=== PATIENT | female | born 1985 | race Caucasian/White ===

== ENCOUNTER 2017-07-22 14:09 | Emergency (ER) | payer MEDICAID, SELFPAY | END 2017-07-22 16:04 | disposition home or self-care (01) | PROVIDERS: Emergency Provider Emergency Medicine; Family Provider Family Medicine; Visit Provider Emergency Medicine | DX: S62.664A Nondisplaced fracture of distal phalanx of right ring finger, initial encounter for closed fracture (principal); W31.89XA Contact with other specified machinery, initial encounter; Y92.099 Unspecified place in other non-institutional residence as the place of occurrence of the external cause; S67.192A Crushing injury of right middle finger, initial encounter; Z23 Encounter for immunization; Z87.891 Personal history of nicotine dependence; Z88.6 Allergy status to analgesic agent | CPT/HCPCS: 73130; 90715; 99282 ==

== ENCOUNTER 2017-10-23 09:48 | Emergency (ER) | payer MEDICAID, SELFPAY ==
[2017-10-23 10:01] VITALS: BP 138/90; PULSE 100; RESP 18; TEMP 37; O2SAT 99; BMI 28.3
--- NOTE | 2017-10-23 10:13 | HMH.EDUTC ---
[facility] [place] Disposition Clinical Impression: Eustachian tube dysfunction Qualifiers: Laterality: bilateral Qualified Code(s): H69.83 - Other specified disorders of Eustachian tube, bilateral Sinusitis Qualifiers: Sinusitis location: maxillary Chronicity: acute Recurrence: non-recurrent Qualified Code(s): J01.00 - Acute maxillary sinusitis, unspecified Disposition: Home, Self-Care Condition on Discharge: Good Instructions: DI for Sinusitis Prescriptions: Fluticasone Propionate [Flonase Allergy Relief NS] 1 spray NS BID 10 Days #1 bot predniSONE [Prednisone 20mg Tab] 20 mg PO BID 5 Days #10 tab Azithromycin [Zithromax 250mg tab] 250 mg PO DIRECTED #6 tab Referrals: Chalo Harrington MD [Primary Care Provider] - Dashawn Wise MD [Staff Physician] - Time of Disposition: 10:31 Medical Decision Making - Medical Records Medical records reviewed: Yes: I reviewed the patient's medical records. - Demetrio Inquiry Pt receiving controlled substance: No Vital Signs: 10/23/17 10:01 Temperature 98.6 F Temperature Source Oral Pulse Rate [Right Radial] 100 H Respiratory Rate 18 Blood Pressure [Right Arm] 138/90 Blood Pressure Mean [Right Arm] 106 02 Sat by Pulse Oximetry 99 Oxygen Delivery Method Room Air - Lab Data Lab results reviewed: Yes: I reviewed the patient's lab results. Medical Decision Narrative: When discussing therapy (Sudafed) patient states that she has occasional heart palpitations and chest heaviness. She is not experiencing these symptoms currently, but they do scare her as she has a family history of early cardiac . Encouraged her to talk to Dr Harrington more about these symptoms to get further testing. [facility] [place] HPI - General Stated complaint: fever,sore throat Time Seen by Provider: 10/23/17 10:13 Mode of Arrival: Family Vehicle Source of Information: Patient Limitations: No Limitations Description of Symptoms (Recalled from Triage Doc. by RN): PT C/O SORE THROAT, EAR PAIN, FEVER. PT HAS BEEN ON ANTIBIOTICS FOR STREP AND KIDNEY INFECTION SINCE September. HEENT Symptoms (Recalled from RN notes): Yes (EAR PAIN, SORE THROAT, FEVER) Resp Symptoms (Recalled from RN notes): Yes (COUGH) Skin Symptoms (Recalled from RN notes): No MS Symptoms (Recalled from RN notes): No Functional Status (Recalled from RN notes): NA - History of Present Illness Provider Complaint: Patient states that she really hasn't felt well for a few weeks. She was on Keflex at the beginning of the month for a UTI and then was changed to PCN VK 11 days ago when her daughter was treated for strep throat. She still has ear pain, sore throat, and fever. Last night she felt like her throat was swelling closed and she had a temp of 101 and some difficulty swallowing. She didn't rest well. She still has some back pain and perhaps some dysuria as well. She feels like her ears are draining and it hurts to swallow. No vomiting or diarrhea. Onset (ago): week(s) (3) Location: mouth Relieving factors: none Exacerbating factors: none Associated symptoms: fever/chills, malaise Treatments prior to arrival: other (Keflex, PCN VK) - Related Data Previous Rx's Medication Instructions Recorded Azithromycin [Zithromax 250mg 250 mg PO DIRECTED #6 tab 10/23/17 tab] Fluticasone Propionate [Flonase 1 spray NS BID 10 Days #1 bot 10/23/17 Allergy Relief NS] predniSONE [Prednisone 20mg 20 mg PO BID 5 Days #10 tab 10/23/17 Tab] Allergies Allergy/AdvReac Type Severity Reaction Status Date / Time codeine [CODEINE] Allergy Unknown Verified 10/23/17 10:00 - Worker's Comp Is this a Worker's Comp case?: No [facility] History I have reviewed the patient's past medical history: Yes Medical History: Denies:: Cancer, Diabetes Mellitus Type 1, Diabetes Mellitus Type 2, MRSA Laterality Cases: Bilateral: Tonsillectomy Amputation: No - Social History Smoking Status: Current every day smoker Tobacco Type: cigarett
[2017-10-23 10:17] LABS: UTC Strep Screen (Rapid) Negative (Negative)
--- NOTE | 2017-10-23 10:22 | ED_ITS ---
[facility] [place] Clinical Impression: Eustachian tube dysfunction Qualifiers: Laterality: bilateral Qualified Code(s): H69.83 - Other specified disorders of Eustachian tube, bilateral Sinusitis Qualifiers: Sinusitis location: maxillary Chronicity: acute Recurrence: non-recurrent Qualified Code(s): J01.00 - Acute maxillary sinusitis, unspecified Disposition: Home, Self-Care Condition on Discharge: Good Instructions: DI for Sinusitis Prescriptions: Fluticasone Propionate [Flonase Allergy Relief NS] 1 spray NS BID 10 Days #1 bot predniSONE [Prednisone 20mg Tab] 20 mg PO BID 5 Days #10 tab Azithromycin [Zithromax 250mg tab] 250 mg PO DIRECTED #6 tab Referrals: Chalo Harrington MD [Primary Care Provider] - Dashawn Wise MD [Staff Physician] - Time of Disposition: 10:31 Medical Decision Making - Medical Records Medical records reviewed: Yes: I reviewed the patient's medical records. - Demetrio Inquiry Pt receiving controlled substance: No Vital Signs: 10/23/17 10:01 Temperature 98.6 F Temperature Source Oral Pulse Rate [Right Radial] 100 H Respiratory Rate 18 Blood Pressure [Right Arm] 138/90 Blood Pressure Mean [Right Arm] 106 02 Sat by Pulse Oximetry 99 Oxygen Delivery Method Room Air - Lab Data Lab results reviewed: Yes: I reviewed the patient's lab results. Medical Decision Narrative: When discussing therapy (Sudafed) patient states that she has occasional heart palpitations and chest heaviness. She is not experiencing these symptoms currently, but they do scare her as she has a family history of early cardiac . Encouraged her to talk to Dr Harrington more about these symptoms to get further testing. [facility] [place]PI - General Stated complaint: fever,sore throat Time Seen by Provider: 10/23/17 10:13 Mode of Arrival: Family Vehicle Source of Information: Patient Limitations: No Limitations Description of Symptoms (Recalled from Triage Doc. by RN): PT C/O SORE THROAT, EAR PAIN, FEVER. PT HAS BEEN ON ANTIBIOTICS FOR STREP AND KIDNEY INFECTION SINCE September. HEENT Symptoms (Recalled from RN notes): Yes (EAR PAIN, SORE THROAT, FEVER) Resp Symptoms (Recalled from RN notes): Yes (COUGH) Skin Symptoms (Recalled from RN notes): No MS Symptoms (Recalled from RN notes): No Functional Status (Recalled from RN notes): NA - History of Present Illness Provider Complaint: Patient states that she really hasn't felt well for a few weeks. She was on Keflex at the beginning of the month for a UTI and then was changed to PCN VK 11 days ago when her daughter was treated for strep throat. She still has ear pain, sore throat, and fever. Last night she felt like her throat was swelling closed and she had a temp of 101 and some difficulty swallowing. She didn't rest well. She still has some back pain and perhaps some dysuria as well. She feels like her ears are draining and it hurts to swallow. No vomiting or diarrhea. Onset (ago): week(s) (3) Location: mouth Relieving factors: none Exacerbating factors: none Associated symptoms: fever/chills, malaise Treatments prior to arrival: other (Keflex, PCN VK) - Related Data Previous Rx's Medication Instructions Recorded Azithromycin [Zithromax 250mg 250 mg PO DIRECTED #6 tab 10/23/17 tab] Fluticasone Propionate [Flonase 1 spray NS BID 10 Days #1 bot 10/23/17 Allergy Relief NS] predniSONE [Prednisone 20mg 20 mg PO BID 5 Days #10 tab 10/23/17
[2017-10-23 10:26] LABS: Apearance,Urine Clear (Clear); Blood, Urine 1+ (Negative); Color,Urine Yellow (Yellow); Glucose,Urine (UA) Negative (Negative); Ketones,Urine Negative (Negative); PH,Urine 5.5 (5.0-8.5); Protein,Urine Negative (Negative); Specific Gravity, Urine 1.015 (1.005-1.030)
[2017-10-23 10:27] LABS: Bilirubin,Urine Negative (Negative); UTC Leukocyte Esterase,Urine Negative (Negative); UTC Nitrate,Urine Negative (Negative); Urobilinogen,Urine 0.2 EU/dl (0.2)
[2017-10-23 10:36] VITALS: BP 130/86; PULSE 95; RESP 16; TEMP 36.9; O2SAT 100
== END 2017-10-23 10:37 | disposition home or self-care (01) ==
PROVIDERS: Emergency Provider Physician Assistant; Family Provider Family Medicine; PCP Family Medicine
DX: H69.83 Other specified disorders of Eustachian tube, bilateral (principal); J01.00 Acute maxillary sinusitis, unspecified; Z88.6 Allergy status to analgesic agent
CPT/HCPCS: 81003; 87880; 99202

== ENCOUNTER → 2018-01-10 08:56 | Outpatient (CLI) | payer MEDICAID, SELFPAY ==
--- NOTE | 2018-01-10 09:01 | US_ITS ---
US abdomen limited History:Epigastric pain and diarrhea Ordering Physician:Chalo Harrington MD Patient Age: 32 years Comparison:None Findings: Pancreas:Unremarkable. No obvious mass or abnormal fluid collection. No ductal dilatation Liver:No focal liver lesions demonstrated. Homogeneous echogenicity. No intrahepatic biliary ductal dilatation evident Right Kidney:Unremarkable. Normal size and echogenicity. No hydronephrosis Gallbladder:No gallstones, gallbladder wall thickening, pericholecystic fluid, or biliary dilatation. Impression:Negative gallbladder/right upper quadrant ultrasound
== END ==
PROVIDERS: Family Provider Family Medicine; PCP Family Medicine; Visit Provider Family Medicine
DX: R10.13 Epigastric pain (principal); K59.1 Functional diarrhea
CPT/HCPCS: 76705

== ENCOUNTER 2020-11-21 16:57 | Emergency (ER) | payer OTHER, SELFPAY ==
[2020-11-21 17:22] VITALS: BP 151/90; PULSE 91; RESP 16; TEMP 36.8; O2SAT 99; BMI 27.4
[2020-11-21 18:03] VITALS: BMI 28.5
--- NOTE | 2020-11-21 18:04 | HMH.EDUTC ---
[facility] [place] Clinical Impression: Right leg pain Disposition: Home, Self-Care Condition on Discharge: Good Instructions: DI for Deep Vein Thrombosis, DI for Leg Pain Additional Instructions: Return to the ER for any shortness of breath or chest pain tonight. Have the venous doppler done in the morning as discussed. Rest tonight and until you have the venous doppler done. Follow up with your primary care doctor tomorrow as scheduled, but make sure you have the doppler done in the morning. GO TO THE ER FOR ANY WORSENING SYMPTOMS OR CONCERNS Referrals: Chalo Harrington MD [Primary Care Provider] - Time of Disposition: 18:09 Medical Decision Making - Medical Records Medical records reviewed: No: I reviewed the patient's medical records. - Demetrio Inquiry Pt receiving controlled substance: No Vital Signs: 11/21/20 17:22 11/21/20 18:45 Temperature 98.3 F 98.3 F Temperature Source Oral Oral Pulse Rate 80 Pulse Rate [Right] 91 H Respiratory Rate 16 16 Blood Pressure 134/50 L Blood Pressure [Right Arm] 151/90 H Blood Pressure Mean [Right Arm] 110 Blood Pressure Source Automatic Cuff Blood Pressure Source [Right Arm] Automatic Cuff Blood Pressure Position Sitting Blood Pressure Position [Right Arm] Sitting 02 Sat by Pulse Oximetry 99 Oxygen Delivery Method Room Air Room Air Orders (Tests/Meds): ED MEDICATIONS Discontinued Medications Generic Name Dose Route Start Last Admin Trade Name Freq PRN Reason Stop Dose Admin Enoxaparin Sodium 80 mg 11/21/20 18:04 11/21/20 18:09 Enoxaparin 80mg/0.8ml Syringe SQ 11/21/20 18:05 80 mg ONCE ONE Administration Medical Decision Narrative: She started complaining of chest pain and mild shortness of breath. She requested to be transferred to the ER. So, she was transferred to room 6 in the ER. [facility] [place] - General Stated complaint: pain R leg Time Seen by Provider: 11/21/20 18:04 Mode of Arrival: Ambulatory Source of Information: Patient Limitations: No Limitations Description of Symptoms (Recalled from Triage Doc. by RN): PT COMPLAINS THAT SHE HAS VARICOSE VEINS ON THE INSIDE OF HER R LEG. PT DROVE FROM [place] TO HERE WEDNESDAY WITHOUT STOPPING. THEN LAID IN BED ALL DAY WEDNESDAY AND WEDNESDAY. YESTERDAY BEHIND PTS KNEE SHE SAID IT FELT LIKE THERE WAS A POP AND A REALLY WARM SENSATION. THE PAIN HAS BEEN ONGOING FOR FOUR DAYS. PT IS EXTREMELY ANXIOUS AND STATES SHE HAD A FRIEND FROM A BLOOD CLOT. HEENT Symptoms (Recalled from RN notes): No Resp Symptoms (Recalled from RN notes): No Skin Symptoms (Recalled from RN notes): No MS Symptoms (Recalled from RN notes): Yes (R LEG PAIN WITH VERICOSE VEINS) Functional Status (Recalled from RN notes): NA - History of Present Illness Provider Complaint: She states that she has right leg pain and swelling for the past 4 days. She has a history of varicose veins in that leg. She denies any personal or family history of blood clots. She denies any shortness of breath and chest pain. - Related Data Previous Rx's Medication Instructions Recorded fluconazole 150 mg tablet 150 mg PO Q3D 0 Days #2 tab 11/18/18 terconazole 0.8 % vaginal cream 1 appful VAGINAL QHS 3 Days #20 g 11/18/18 nitrofurantoin 100 mg PO BID 10 Days #20 cap 04/28/19 monohydrate/macrocrystals 100 mg capsule Allergies Allergy/AdvReac Type Severity Reaction Status Date / Time codeine [CODEINE] Allergy Unknown Verified 04/28/19 09:35 - Worker's Comp Is this a Worker's Comp case?: No [facility] History - Hepatitis A Screen Drug use history?: No High risk sexual behaviors?: No History of sexually transmitted infection?: No Currently employed?: No Childcare worker?: No Do you have indoor plumbing?: Yes Do you have electricity?: Yes Attestation statement:: This patient has been screened for Hepatitis A risk factors. I have reviewed the patient's past medical history: Yes Medical History: Denies:: Can
--- NOTE | 2020-11-21 18:34 | PC.NURSE ---
Dr. Green at bedside with patient having a discussion. PT has decided against workup and advises she just wants the lovenox shot and wants the doppler for the am. wrote order and notified resp of doppler.
--- NOTE | 2020-11-21 18:40 | HMH.EDGENADL ---
ED Disposition Clinical Impression: Right leg pain Disposition: Home, Self-Care Condition on Discharge: Good Instructions: DI for Deep Vein Thrombosis, DI for Leg Pain Additional Instructions: Return to the ER for any shortness of breath or chest pain tonight. Have the venous doppler done in the morning as discussed. Rest tonight and until you have the venous doppler done. Follow up with your primary care doctor tomorrow as scheduled, but make sure you have the doppler done in the morning. GO TO THE ER FOR ANY WORSENING SYMPTOMS OR CONCERNS Referrals: Chalo Harrington MD [Primary Care Provider] - - Critical Care Critical Care Time: No Attestation: On 11/21/20, the high probability of a clinically significant, sudden or life threatening deterioration of the following system(s) required my full and direct attention, intervention and personal management. The time I documented below is in addition to time spent performing reported procedures but includes the following listed in this critical care notation. Medical Decision Making - Medical Records Medical records reviewed: Yes: I reviewed the patient's medical records. - Demetrio Inquiry Pt receiving controlled substance: No Vital Signs: 11/21/20 17:22 Temperature 98.3 F Temperature Source Oral Pulse Rate [Right] 91 H Respiratory Rate 16 Blood Pressure [Right Arm] 151/90 H Blood Pressure Mean [Right Arm] 110 Blood Pressure Source [Right Arm] Automatic Cuff Blood Pressure Position [Right Arm] Sitting 02 Sat by Pulse Oximetry 99 Oxygen Delivery Method Room Air Orders (Tests/Meds): ED MEDICATIONS Discontinued Medications Generic Name Dose Route Start Last Admin Trade Name Freq PRN Reason Stop Dose Admin Enoxaparin Sodium 80 mg 11/21/20 18:04 11/21/20 18:09 Enoxaparin 80mg/0.8ml Syringe SQ 11/21/20 18:05 80 mg ONCE ONE Administration Medical Decision Narrative: 35-year-old female presents with right lower extremity pain. Exam is most consistent with a chronic exertional pain. She has varicose veins are worsening in the right lower extremity as well after ambulating. Bedside ultrasound with four-point compression of the iliac vein and popliteal vein show adequate compression throughout. She does not have 1+ edema in the lower extremity and otherwise is PERC negative for PTE. As it is after hours for radiology ultrasound at this time, plan to give 1 dose of Lovenox 1 mg/kg and schedule outpatient ultrasound Doppler for the morning. She was agreeable with this plan and given strict return precautions for returning should there be any issues General Adult HPI - General Stated complaint: pain R leg Time Seen by Provider: 11/21/20 18:04 Mode of Arrival: Ambulatory Source of Information: Patient Limitations: No Limitations Description of Symptoms (Recalled from ER Triage Doc. by RN): PT COMPLAINS THAT SHE HAS VARICOSE VEINS ON THE INSIDE OF HER R LEG. PT DROVE FROM [place] TO HERE WEDNESDAY WITHOUT STOPPING. THEN LAID IN BED ALL DAY WEDNESDAY AND WEDNESDAY. YESTERDAY BEHIND PTS KNEE SHE SAID IT FELT LIKE THERE WAS A POP AND A REALLY WARM SENSATION. THE PAIN HAS BEEN ONGOING FOR FOUR DAYS. PT IS EXTREMELY ANXIOUS AND STATES SHE HAD A FRIEND FROM A BLOOD CLOT. - History of Present Illness HPI narrative: 35-year-old female presents with tenderness and pain to her right lower leg. She recently traveled to [place] in a car and was on her feet a lot while she was down there. She has anxiety because of her aunt from a blood clot. She has no chest pain shortness of air abdominal pain nausea vomiting. No prior blood clots. No hemoptysis cough fever chills. She does have chronic varicose veins in that right lower extremity. Onset (ago): day(s) (1) Radiation: non-radiation Severity: mild - Related Data Previous Rx's Medication Instructions Recorded fluconazole 150 mg tablet 150 mg PO Q3D 0 Days #2 tab 11/18/[address] [facility]
[2020-11-21 18:45] VITALS: BP 134/50; PULSE 80; RESP 16; TEMP 36.8; O2SAT 98
== END 2020-11-21 18:45 | disposition home or self-care (01) ==
LOC: UTC 18:08 → ER 18:19
PROVIDERS: Emergency Provider Nurse Practitioner Family; PCP Family Medicine
DX: I83.811 Varicose veins of right lower extremity with pain (principal); F17.210 Nicotine dependence, cigarettes, uncomplicated
CPT/HCPCS: 96372; 99281

== ENCOUNTER → 2020-11-22 08:53 | Outpatient (CLI) | payer OTHER, SELFPAY ==
--- NOTE | 2020-11-22 08:59 | CA_ITS ---
APPROVED REPORT Right Lower Extremity Venous Study for DVT. Cable Inspector: BRENDA PhelpsT Indications Lower Extremity Pain: Right Lower Extremity Edema: Right Varicose Veins PAIN AND BURNING BEHIND RT KNEE, PAIN MEDIAL RLE,PT RODE IN CAR FROM [place] RECENTLY Medications PT HAD SHOT OF LOVENOX LAST NIGHT IN ER Vein Imaging CFV (R): compressive, spontaneous, phasic, augmentation FEM (R): compressive, spontaneous, phasic, augmentation POP (R): compressive, spontaneous, phasic, augmentation PTV (R): Compressible GSV (R): Compressible Peroneals (R):Compressible GAS (R): Compressible Findings Study suggests no evidence of DVT of the right lower extremity. Study suggests no evidence of SVT of the right lower extremity. Conclusion Study suggests no evidence of DVT of the right lower extremity. Study suggests no evidence of SVT of the right lower extremity. Critical Notification Date: 11/22/2020 Time: 09:38 Physician Name: Dr Harrington office Electronically signed by : Ethan Betancourt MD 11/22/2020 15:47:52
== END ==
PROVIDERS: PCP Family Medicine; Visit Provider Nurse Practitioner Family
DX: M79.604 Pain in right leg (principal)
CPT/HCPCS: 93971

== ENCOUNTER → 2021-01-16 10:49 | Outpatient (CLI) | payer OTHER, SELFPAY ==
--- NOTE | 2021-01-16 11:00 | XR_ITS ---
PROCEDURE: XR CERVICAL SPINE MIN 6V CLINICAL INDICATION: CERVICAL RADICULOPATHY COMPARISON: No exams were available for comparison FINDINGS: Normal alignment. No fracture or dislocation. No lytic or blastic change. There is straightening of the cervical lordosis which could be due to patient positioning or muscle spasm. There is mild cervical curvature convex right. Degenerative disc disease C3-C4. Foraminal narrowing on the right at C3-C4 and C4-C5. IMPRESSION: Loss of normal cervical lordosis Mild degenerative disc disease C3-C4 with right-sided foraminal narrowing at C3-C4 and C4-C5 Dictated by: Ethan Betancourt MD 01/16/2021 14:27 Ethan Betancourt MD in [place] 01/16/2021 14:27
== END ==
PROVIDERS: PCP Family Medicine; Visit Provider Family Medicine
DX: M54.12 Radiculopathy, cervical region (principal)
CPT/HCPCS: 72052

== ENCOUNTER → 2021-03-06 10:47 | Outpatient (CLI) | payer OTHER, SELFPAY ==
--- NOTE | 2021-03-06 10:50 | MR_ITS ---
PROCEDURE: MR CERVICAL SPINE WO CON CLINICAL INDICATION: DEGENERATION OF CERVICAL INTERVERTEBRAL DISC Neck pain and left arm numbness COMPARISON: No exams were available for comparison TECHNIQUE: Standard multiplanar multiecho sequences are performed without contrast. 3-D MIP and myelographic images are also rendered and reviewed FINDINGS: Normal alignment. Unremarkable craniocervical junction. Spinal cord has an unremarkable appearance. C2-C3: Unremarkable. C3-C4: Mild right-sided foraminal narrowing from uncovertebral hypertrophy C4-C5: Unremarkable. C5-C6: Mild degenerative disc disease with minimal bulging disc. There is narrowing of the canal at 11 mm. No cord impingement. C6-C7: Minimal bulging disc without impingement. Mild left foraminal narrowing from uncovertebral hypertrophy. Narrowing of the canal at 11 mm. C7-T1: Unremarkable. IMPRESSION: 1. Mild degenerative disc disease with minimal bulging disc at C5-C6 and C6-C7 with narrowing of the canal at these levels but without cord impingement. 2. Mild right foraminal narrowing at C3-C4 and mild left foraminal narrowing at C6-C7 3. No extruded herniated disc Dictated by: Ethan Betancourt MD 03/07/2021 08:41 Ethan Betancourt MD in [place] 03/07/2021 08:41
== END ==
PROVIDERS: PCP Family Medicine; Visit Provider Anesthesiology
DX: M50.30 Other cervical disc degeneration, unspecified cervical region (principal)
CPT/HCPCS: 72141; 76376

== ENCOUNTER 2021-11-09 19:59 | Emergency (ER) | payer OTHER, SELFPAY ==
[2021-11-09 20:15] VITALS: BP 131/86; PULSE 87; RESP 19; TEMP 37; O2SAT 99; BMI 28.3
--- NOTE | 2021-11-09 20:34 | HMH.EDUTC ---
[facility] [place] Impression: COVID-19 virus test result unknown Disposition: Home, Self-Care Condition on Discharge: Good Instructions: COVID-19: Testing and Tracing Referrals: Chalo Harrington MD [Primary Care Provider] - Time of Disposition: 20:35 Medical Decision Making - Demetrio Inquiry Pt receiving controlled substance: No Orders (Tests/Meds): ORDERS Category Date Time Status Covid-19 Nasal PCR ([facility]) Routine Lab 11/09/21 20:20 [place] [facility] [place] - General Chief complaint: Urgent [facility] Stated complaint: covid test Time Seen by Provider: 11/09/21 20:34 Mode of Arrival: Ambulatory Source of Information: Patient Limitations: No Limitations - History of Present Illness Provider Complaint: 36 yr old female presents for covid test, pt states she needs covid test prior to surgery in am. no symptoms - Related Data Previous Rx's Medication Instructions Recorded fluconazole 150 mg tablet 150 mg PO Q3D 0 Days #2 tab 11/18/18 terconazole 0.8 % vaginal cream 1 appful VAGINAL QHS 3 Days #20 g 11/18/18 nitrofurantoin 100 mg PO BID 10 Days #20 cap 04/28/19 monohydrate/macrocrystals 100 mg capsule Allergies Allergy/AdvReac Type Severity Reaction Status Date / Time codeine [CODEINE] Allergy Unknown Verified 04/28/19 09:35 [facility] History - Hepatitis A Screen Attestation statement:: This patient has been screened for Hepatitis A risk factors. I have reviewed the patient's past medical history: Yes Medical History: Denies:: Cancer, Diabetes Mellitus Type 1, Diabetes Mellitus Type 2, MRSA Laterality Cases: Bilateral: Tonsillectomy Amputation: No - Social History Smoking Status: Current every day smoker Tobacco Type: cigarettes # Packs/Day (cigarettes): 1 Alcohol Intake: current Alcohol Intake Frequency:: holidays/special occasions only Substance Use Type: denies use Occupational Status: other ROS Obtained: Yes Systems reviewed as appropriate & no additional complaints - Constitutional Constitutional: Reports system reviewed and no additional complaints, except as docu, Denies fever(s) - Eyes Eyes: Reports system reviewed and no additional complaints, except as docu, Denies dry eyes - ENT Ears, Nose, Mouth, and Throat: Reports system reviewed and no additional complaints, except as docu, Denies bleeding gums - Cardiovascular Cardiovascular: Reports system reviewed and no additional complaints, except as docu, Denies chest pain - Respiratory Respiratory: Reports system reviewed and no additional complaints, except as docu, Denies change in phlegm color - Gastrointestinal Gastrointestingal: Reports: system reviewed and no additional complaints, except as docu. Denies: abdominal pain - Musculoskeletal Musculoskeletal: Reports system reviewed and no additional complaints, except as docu, Denies joint pain - Integumentary/Breasts Skin/Breast: Reports system reviewed and no additional complaints, except as docu, Denies rash - Neurologic Neurologic: Reports system reviewed and no additional complaints, except as docu, Denies dizziness - Endocrine Endocrine: Reports system reviewed and no additional complaints, except as docu, Denies fatigue - Hematologic/Lymphatic Henatologic/Lymphatic: Reports system reviewed and no additional complaints, except as docu, Denies lymphadenopathy - Allergic/Immunologic Allergic/Immunologic: Reports system reviewed and no additional complaints, except as docu, Denies itchy eyes Physical Exam - General General appearance: alert, in no apparent distress - Head Head exam: atraumatic, normocephalic, normal inspection - Eye Eye exam: Present: normal appearance, PERRL - ENT ENT exam: Present: normal exam, normal oropharynx, mucous membranes moist, TM's normal bilaterally, normal external ear exam - Neck Neck exam: Present: normal inspection, full ROM, trachea midline. Absent: meningismus, lymphadenopathy - Chest C
[2021-11-09 20:35] VITALS: BP 131/86; PULSE 87; RESP 19; TEMP 37; O2SAT 99
== END 2021-11-09 20:36 | disposition home or self-care (01) ==
PROVIDERS: Emergency Provider Nurse Practitioner Family; PCP Family Medicine
DX: Z03.89 Encounter for observation for other suspected diseases and conditions ruled out (principal); Z20.822 Contact with and (suspected) exposure to COVID-19; F17.210 Nicotine dependence, cigarettes, uncomplicated; Z79.51 Long term (current) use of inhaled steroids; Z88.5 Allergy status to narcotic agent
CPT/HCPCS: 99212; C9803; G0463; U0003; U0005

== ENCOUNTER 2022-03-05 21:12 | Emergency (ER) | payer OTHER, SELFPAY ==
[2022-03-05 21:48] VITALS: BP 117/80; PULSE 81; RESP 18; TEMP 36.5; O2SAT 98; BMI 26.6
--- NOTE | 2022-03-05 22:46 | HMH.EDSKAF ---
ED Disposition Clinical Impression: Contact dermatitis Qualifiers: Contact dermatitis type: irritant Contact dermatitis trigger: non-food plants Qualified Code(s): L24.7 - Irritant contact dermatitis due to plants, except food Disposition: Home, Self-Care Condition on Discharge: Good Instructions: Poison Izabel, Poison [place], Poison [place] Additional Instructions: use meds as directed and see pcp for follow up Prescriptions: predniSONE [Prednisone 20mg Tab] 20 mg PO BID #10 tab Transmission Status: Pending to [facility] Referrals: Chalo Harrington MD [Primary Care Provider] - - Critical Care Critical Care Time: No Attestation: On 03/05/22, the high probability of a clinically significant, sudden or life threatening deterioration of the following system(s) required my full and direct attention, intervention and personal management. The time I documented below is in addition to time spent performing reported procedures but includes the following listed in this critical care notation. Medical Decision Making - Medical Records Medical records reviewed: Yes: I reviewed the patient's medical records. - Demetrio Inquiry Pt receiving controlled substance: No Vital Signs: 03/05/22 21:48 Temperature 97.7 F Temperature Source Oral Pulse Rate [Right Brachial] 81 Respiratory Rate 18 Blood Pressure [Right Arm] 117/80 Blood Pressure Mean [Right Arm] 92 Blood Pressure Source [Right Arm] Automatic Cuff Blood Pressure Position [Right Arm] Sitting 02 Sat by Pulse Oximetry 98 Oxygen Delivery Method Room Air - Lab Data Lab results reviewed: Yes: I reviewed the patient's lab results. Medical Decision Narrative: prob contact dermatitis - poison izabel Skin/Abscess/FB HPI - General Chief complaint: Skin/Abscess/Foreign Body Stated complaint: rash Time Seen by Provider: 03/05/22 22:46 Mode of Arrival: Family Vehicle Source of Information: Patient, Medical Record Limitations: No Limitations Description of Symptoms (Recalled from ER Triage Doc. by RN): PATIENT PRESENTS WITH SKIN RASH THAT SHE THINKS IS POISON IZABEL. WOULD LIKE A STEROID SHOT FOR TREATMENT. - History of Present Illness HPI narrative: has been camping and possible contact dermatitis with rash and itching MD complaint: rash Onset (ago): hour(s) Tetanus up to date: yes Location: generalized Severity: moderate Quality: pruritic Consistency: intermittent Associated symptoms: denies other symptoms Treatments prior to arrival: Benadryl - Related Data Home Medications Medication Instructions Recorded Confirmed bevacizumab 25 mg/mL intravenous INTRAVITRE 02/06/22 02/06/22 solution tramadol 50 mg tablet 50 mg PO TID PRN 02/06/22 02/06/22 Previous Rx's Medication Instructions Recorded predniSONE [Prednisone 20mg 20 mg PO BID #10 tab 03/05/22 Tab] Allergies Allergy/AdvReac Type Severity Reaction Status Date / Time codeine [CODEINE] Allergy Unknown Verified 02/06/22 11:13 [facility] History - Hepatitis A Screen Attestation statement:: This patient has been screened for Hepatitis A risk factors. I have reviewed the patient's past medical history: Yes Medical History: Denies:: Cancer, Diabetes Mellitus Type 1, Diabetes Mellitus Type 2, MRSA Laterality Cases: Bilateral: Tonsillectomy Amputation: No - Social History Smoking Status: Current every day smoker Tobacco Type: cigarettes # Packs/Day (cigarettes): 1 Alcohol Intake: current Alcohol Intake Frequency:: holidays/special occasions only Substance Use Type: denies use Occupational Status: other ROS Obtained: Yes All systems reviewed & no additional complaints - Constitutional Constitutional: Denies fever(s) - Eyes Eyes: Denies change in vision - ENT Ears, Nose, Mouth, and Throat: Denies sore throat - Cardiovascular Cardiovascular: Denies chest pain - Respiratory Respiratory: Denies shortness of breath - Gastrointestinal Gastrointesting
[2022-03-05 23:04] VITALS: BP 115/74; PULSE 74; RESP 18; TEMP 36.5; O2SAT 98
== END 2022-03-05 23:14 | disposition home or self-care (01) ==
PROVIDERS: Emergency Provider Emergency Medicine; PCP Family Medicine
DX: L24.7 Irritant contact dermatitis due to plants, except food (principal); Z79.899 Other long term (current) drug therapy; Z88.6 Allergy status to analgesic agent; Z72.0 Tobacco use
CPT/HCPCS: 96372; 99283

== ENCOUNTER 2022-03-08 13:23 | Emergency (ER) | payer OTHER, SELFPAY ==
[2022-03-08 14:51] VITALS: BP 145/86; PULSE 97; RESP 16; TEMP 36.6; O2SAT 98; BMI 29.5
--- NOTE | 2022-03-08 15:08 | HMH.EDUTC ---
[facility] Disposition Clinical Impression: Skin problem Disposition: Home, Self-Care Condition on Discharge: Good Instructions: DI for Impetigo, Impetigo Additional Instructions: Keep lesions clean and dry and do not scratch Wash your hands well before and after applying topical medication Start oral medication Return if needed Prescriptions: Doxycycline Monohydrate [Doxycycline Nome 100mg Tab] 100 mg PO BID 7 Days #14 tab Transmission Status: Pending to [facility] Mupirocin Calcium [Mupirocin 2% Cream 15gm] 1 applicatio TP TID 10 Days #15 gm Transmission Status: Pending to [facility] Referrals: Chalo Harrington MD [Primary Care Provider] - As needed Time of Disposition: 15:32 Medical Decision Making - Demetrio Inquiry Pt receiving controlled substance: No Demetrio was queried for this patient: No Vital Signs: 03/08/22 14:51 Temperature 97.9 F Temperature Source Oral Pulse Rate [Left] 97 H Respiratory Rate 16 Blood Pressure [Right Arm] 145/86 H Blood Pressure Mean [Right Arm] 105 02 Sat by Pulse Oximetry 98 Medical Decision Narrative: Daughter recently had similar rash that was cultured and showed Staphylococcus aureus [facility] HPI - General Stated complaint: skin rash Time Seen by Provider: 03/08/22 15:08 Mode of Arrival: Ambulatory Source of Information: Patient Limitations: No Limitations Description of Symptoms (Recalled from Triage Doc. by RN): patient comes in with complaints of skin rash that began wednesday HEENT Symptoms (Recalled from RN notes): No Resp Symptoms (Recalled from RN notes): No Skin Symptoms (Recalled from RN notes): Yes MS Symptoms (Recalled from RN notes): No Functional Status (Recalled from RN notes): n/a - History of Present Illness Provider Complaint: Patient states that she started out with poison dez rash and was seen in the ED a couple days ago and states she has been on Prednisone and poison dez is better however her daughter had impetigo and now she thinks she may have it too States that she has areas starting under her arms on her leg and felt like there may be one in her ear - Related Data Home Medications Medication Instructions Recorded Confirmed bevacizumab 25 mg/mL intravenous INTRAVITRE 02/06/22 02/06/22 solution tramadol 50 mg tablet 50 mg PO TID PRN 02/06/22 03/08/22 predniSONE [Prednisone 20mg 20 mg PO BID 03/08/22 03/08/22 Tab] Previous Rx's Medication Instructions Recorded Doxycycline Monohydrate 100 mg PO BID 7 Days #14 tab 03/08/22 [Doxycycline Nome 100mg Tab] Mupirocin Calcium [Mupirocin 2% 1 applicatio TP TID 10 Days #15 gm 03/08/22 Cream 15gm] Allergies Allergy/AdvReac Type Severity Reaction Status Date / Time codeine [CODEINE] Allergy Unknown Verified 03/08/22 14:54 - Worker's Comp Is this a Worker's Comp case?: No [facility] History - Hepatitis A Screen Attestation statement:: This patient has been screened for Hepatitis A risk factors. I have reviewed the patient's past medical history: Yes Medical History: Denies:: Cancer, Diabetes Mellitus Type 1, Diabetes Mellitus Type 2, MRSA Laterality Cases: Bilateral: Tonsillectomy Amputation: No - Social History Smoking Status: Current every day smoker Tobacco Type: cigarettes # Packs/Day (cigarettes): 1 Alcohol Intake: current Alcohol Intake Frequency:: holidays/special occasions only Substance Use Type: denies use Occupational Status: other ROS Obtained: Yes All systems reviewed & no additional complaints, Yes Systems reviewed as appropriate & no additional complaints - Constitutional Constitutional: Reports system reviewed and no additional complaints, except as docu - ENT Ears, Nose, Mouth, and Throat: Reports system reviewed and no additional complaints, except as docu - Cardiovascular Cardiovascular: Reports system reviewed and no additional complaints, except as docu - Respiratory Respiratory: Reports system reviewed a
[2022-03-08 15:36] VITALS: BP 145/86; PULSE 97; RESP 16; TEMP 36.6
== END 2022-03-08 15:42 | disposition home or self-care (01) ==
PROVIDERS: Emergency Provider Nurse Practitioner; PCP Family Medicine
DX: R21 Rash and other nonspecific skin eruption (principal)
CPT/HCPCS: 99212; G0463

== ENCOUNTER → 2022-04-14 10:47 | Outpatient (CLI) | payer OTHER, SELFPAY ==
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
== END ==
PROVIDERS: PCP Family Medicine; Visit Provider Physician Assistant Medical
DX: M54.12 Radiculopathy, cervical region (principal); M54.50 Low back pain, unspecified
CPT/HCPCS: 72084

== ENCOUNTER → 2022-09-10 15:29 | Outpatient (CLI) | payer OTHER, SELFPAY ==
[2022-09-10 17:55] LABS: Basophils # 0.1 K/mm3 (0-0.2); Basophils % 0.6 % (0.1-2.0); Eosinophils # 0.2 K/mm3 (0.0-0.4); Eosinophils % 1.4 % (0.1-12.0); Hemoglobin 12.7 g/dL (12.2-16.2); Lymphocytes # 3.3 K/mm3 (0.7-4.5); Lymphocytes % 25.4 % (10-50); Mean Corpuscular HGB Conc 31.7 g/dL (31.8-35.4); Mean Corpuscular Hemoglobin 29.6 pg (27.0-31.2); Mean Corpuscular Volume 93.4 fl (81-99); Mean Platelet Volume 8.1 fl (7.4-10.4); Monocytes # 0.5 K/mm3 (0.1-1.0); Neutrophils % 68.6 % (37.0-80.0); Platelet Count 411 K/mm3 (142-424); Red Blood Count 4.29 M/mm3 (4.20-5.40); Red Cell Distribution Width 12.9 % (11.5-17.5); White Blood Count 13.1 K/mm3 (4.8-10.8)
[2022-09-10 19:56] LABS: Alanine Aminotransferase 17 U/L (12-78); Albumin Level 4.7 g/dl (3.5-5.0); Alkaline Phosphatase 59 U/L (38-126); Anion Gap 13.9 mEq/L (5-15); Aspartate Amino Transferase 24 U/L (14-36); Bilirubin,Total 0.6 mg/dl (0.2-1.3); Blood Urea Nitrogen 16 mg/dl (7-17); Calcium 8.9 mg/dl (8.4-10.2); Carbon Dioxide 27 mmol/L (22.0-30.0); Chloride 100 mmol/L (98-107); Chol/HDL Ratio 4.2 (1-3.5); Cholesterol 158 mg/dl (140-200); Estimated Glomerular Filt Rate 81 ml/min (>60); GFR (African American) 98 ML/MIN (>60); Globulin 2.4 g/dL (1.3-3.2); Glucose 97 mg/dl (74-100); HDL Cholesterol 38 mg/dl (40-60); Magnesium 1.9 mg/dl (1.6-2.3); Potassium 3.9 mmoL/L (3.5-5.1); Sodium 137 mmol/L (136-145); Total Protein,Serum 7.1 g/dl (6.3-8.2); Triglycerides 232 mg/dl (30-150); VLDL Cholesterol 46 mg/dL (0-40)
[2022-09-10 20:08] LABS: C-Reactive Protein 0.7 mg/L (0-4); Direct LDL Cholesterol 94.97 mg/dL (100-129)
[2022-09-10 20:13] LABS: Free T4 (Free Thyroxine) 0.87 ng/dl (0.78-2.19)
[2022-09-10 20:27] LABS: Troponin I < 0.01 ng/ml (0.00-0.034)
[2022-09-10 20:30] LABS: Thyroid Stimulating Hormone 2.76 uIU/mL (0.465-4.68)
== END ==
PROVIDERS: PCP Family Medicine; Visit Provider Nurse Practitioner Family
DX: R07.9 Chest pain, unspecified (principal); R03.0 Elevated blood-pressure reading, without diagnosis of hypertension; I83.811 Varicose veins of right lower extremity with pain; Z82.49 Family history of ischemic heart disease and other diseases of the circulatory system
CPT/HCPCS: 36415; 80053; 80061; 83735; 84439; 84443; 84484; 85025; 86140

== ENCOUNTER → 2022-10-22 15:25 | Outpatient (CLI) | payer OTHER, SELFPAY ==
--- NOTE | 2022-10-22 15:25 | CA_ITS ---
APPROVED REPORT EXAM: Comprehensive 2D, Doppler, and color-flow Echocardiogram Vault Clerk: Cheli Fenton RT(R) Ht: 5 ft 3 in Wt: 175lbs BSA: 1.83 BP: 136/44 mmHg Indications: palpitations, CP, smoker, fatigue, SOB, HTN, CAD 2D Dimensions Aortic Root 2.01 cm F: 2.7 - 3.3 M-Mode Dimensions RVDd 2.22 cm (0.9-2.6) LA Diam 3.07 cm (1.9-4.0) LVDd 4.47 cm (3.5-5.7) Ao Diam 3.15 cm (2.0-3.7) LVDs 3.36 cm (3.5-5.7) IVSd 0.97 cm (0.6-1.1) PWd 0.86 cm (0.6-1.1) EF (Teich) 49.30% FS 24.80% EDV (Teich) 91.00 mL ESV (Teich) 46.10 mL LV Diastology E Decel Time 167.00 (160-240 msec) E/A Ratio 0.9 MED E' 14.00 (< 7 cm/sec) E'/MED E' Ratio 5.58 (>14) LAT E' 15.50 (<10 cm/sec) E/LAT E' Ratio 5.04 (>14) Mitral Valve MV E Max Mason. 78.00 (40-130 cm/s) MV A Velocity 89.00 (40-130 cm/s) E/A Ratio 0.87 MV Decel. Time 167.00 (160-240 ms) MV PHT 49.00 ms Left Ventricle Left atrium is normal size left ventricle is normal size, estimated ejection fraction 55% with no regional wall motion abnormality, diastolic parameters are within normal range. Right Ventricle Right atrium and right ventricular normal size and contractility. Aortic Valve Aortic valve is grossly normal there is no aortic stenosis aortic insufficiency. Mitral Valve Mitral valve is grossly normal, there is trace mitral regurgitation. Tricuspid Valve Tricuspid grossly normal, there is trace tricuspid regurgitation, tricuspid regurgitation jet velocity is inadequate for calculation of the right ventricular systolic pressure. Pulmonic Valve Pulmonic valve is poorly visualized. Great Vessels Aortic root is normal size. Inferior vena cava normal size with normal inspiratory collapse. Pericardium No significant pericardial effusion noted. Conclusion 1. Normal left ventricular size preserved left ventricular systolic function, estimated ejection fraction 55% with no regional wall motion abnormality, diastolic parameters are within normal range. 2. Trace mitral and tricuspid regurgitation. 3. No significant pericardial effusion noted. 4. Inferior vena cava is normal size with normal inspiratory collapse. Electronically signed by : Macario Henley MD 10/22/2022 17:05:08
== END ==
PROVIDERS: PCP Nurse Practitioner Family; Visit Provider Nurse Practitioner
DX: R06.00 Dyspnea, unspecified (principal); R07.89 Other chest pain; R00.2 Palpitations; I10 Essential (primary) hypertension; Z72.0 Tobacco use
CPT/HCPCS: 93306

== ENCOUNTER → 2022-10-29 16:36 | Outpatient (CLI) | payer OTHER, SELFPAY ==
[2022-10-29 17:04] LABS: Basophils % 0.6 % (0.1-2.0); Eosinophils # 0.2 K/mm3 (0.0-0.4); Eosinophils % 2.4 % (0.1-12.0); Hematocrit 39.3 % (37.0-47.0); Hemoglobin 12.3 g/dL (12.2-16.2); Lymphocytes # 2.3 K/mm3 (0.7-4.5); Lymphocytes % 32.6 % (10-50); Mean Corpuscular HGB Conc 31.3 g/dL (31.8-35.4); Mean Corpuscular Hemoglobin 29.7 pg (27.0-31.2); Mean Corpuscular Volume 94.8 fl (81-99); Mean Platelet Volume 7.7 fl (7.4-10.4); Monocytes # 0.3 K/mm3 (0.1-1.0); Monocytes % 4.7 % (1.7-9.3); Neutrophils # 4.2 K/mm3 (1.8-7.8); Neutrophils % 59.7 % (37.0-80.0); Platelet Count 319 K/mm3 (142-424); Red Blood Count 4.14 M/mm3 (4.20-5.40); Red Cell Distribution Width 13.3 % (11.5-17.5)
[2022-10-29 17:31] LABS: Chloride 102 mmol/L (98-107); Sodium 140 mmol/L (136-145)
[2022-10-29 17:32] LABS: Potassium 4.7 mmoL/L (3.5-5.1)
[2022-10-29 17:34] LABS: Blood Urea Nitrogen 16 mg/dl (7-17); Estimated Glomerular Filt Rate 94 ml/min (>60); GFR (African American) 114 ML/MIN (>60)
[2022-10-29 17:35] LABS: Anion Gap 12.7 mEq/L (5-15); Calcium 8.8 mg/dl (8.4-10.2); Carbon Dioxide 30 mmol/L (22.0-30.0); Glucose 127 mg/dl (74-100)
== END ==
PROVIDERS: PCP Family Medicine; Visit Provider Surgery
DX: Z01.812 Encounter for preprocedural laboratory examination (principal)
CPT/HCPCS: 36415; 80048; 85025

== ENCOUNTER 2022-12-19 11:26 | Emergency (ER) | payer OTHER, SELFPAY ==
[2022-12-19 11:26] VITALS: BP 137/78; PULSE 90; RESP 18; TEMP 37.1; O2SAT 100; BMI 30.9
--- NOTE | 2022-12-19 12:18 | EXP.UTC ---
Discharge Plan Disposition Patient Disposition: Home, Self-Care Condition: Good Prescriptions Prescriptions: New prednisone [prednisone] 20 mg tablet 20 mg PO BID Qty: 10 0RF No Action tramadol 50 mg tablet 50 mg PO TID PRN (Reason: pain) losartan 100 mg tablet 100 mg PO DAILY Referrals Follow up/Referrals: Chalo Harrington MD [Primary Care Provider] - See instructions Clinical Impressions Clinical Impression: Allergy to poison lisa Instructions Patient Instructions: DI for Poison Lisa Allergy [facility]charge [facility] [facility] [place] General Stated complaint: Poison lisa rash Mode of Arrival: Ambulatory Source of Information: Patient Limitations: No Limitations Time Seen by Provider: 12/19/22 12:18 Description of Symptoms (Recalled from Triage Doc. by RN): poision lisa all over and spreading HEENT Symptoms (Recalled from RN notes): No Resp Symptoms (Recalled from RN notes): No Skin Symptoms (Recalled from RN notes): Yes MS Symptoms (Recalled from RN notes): No Functional Status (Recalled from RN notes): n/a History of Present Illness Provider Complaint: 37 yr old female presents for poison lisa on legs, ear and groin that has spread Related Data Home Medications Medication Instructions Recorded Confirmed tramadol 50 mg tablet 50 mg PO TID PRN pain 02/06/22 12/19/22 losartan 100 mg tablet 100 mg PO DAILY Hypertension 12/19/22 12/19/22 Previous Rx's Medication Instructions Recorded prednisone 20 mg tablet 20 mg PO BID #10 tabs 12/19/22 Allergies Allergy/AdvReac Type Severity Reaction Status Date / Time codeine [CODEINE] Allergy Unknown Verified 12/19/22 11:56 Worker's Comp Is this a Worker's Comp case?: No [facility] Disclaimer: The information contained in this section may have been updated after the patient was seen, as this information can be updated by other users. 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) Smoking Status: Current every day smoker tobacco type: cigarettes packs per day: 1 alcohol intake: current substance use type: denies use current occupational status: other Travel in the last 8 weeks: None ROS Obtained: Yes All systems reviewed & no additional complaints except as documented Constitutional Constitutional: Reports system reviewed and no additional complaints, except as documented Eyes Eyes: Reports system reviewed and no additional complaints, except as documented ENT Ears, Nose, Mouth, and Throat: Reports system reviewed and no additional complaints, except as documented and Reports as per HPI Cardiovascular Cardiovascular: Reports system reviewed and no additional complaints, except as documented Respiratory Respiratory: Reports system reviewed and no additional complaints, except as documented Gastrointestinal Gastrointestingal: Reports system reviewed and no additional complaints, except as documented Musculoskeletal Musculoskeletal: Reports system reviewed and no additional complaints, except as documented Integumentary/Breasts Skin/Breast: Reports system reviewed and no additional complaints, except as documented, Reports as per HPI, Reports pruritus and Reports rash Neurologic Neurologic: Reports system reviewed and no additional complaints, except as documented Allergic/Immunologic Allergic/Immunologic: Reports system reviewed and no additional complaints, except as documented Physical Exam General General appearance: alert and in no apparent distress Head Head exam: atraumatic Eye Eye exam: Present normal appearance and PERRL ENT ENT exam: Present normal exam, normal oropharynx, mucous membranes moist and TM's normal bilaterally Neck Neck exam: Present full ROM Respiratory Respiratory exam: Present normal lung soun
[2022-12-19 12:50] VITALS: BP 137/78; PULSE 90; RESP 18; TEMP 37.1; O2SAT 100
== END 2022-12-19 12:50 | disposition home or self-care (01) ==
PROVIDERS: Emergency Provider Nurse Practitioner Family; PCP Family Medicine
DX: L23.7 Allergic contact dermatitis due to plants, except food (principal); F17.210 Nicotine dependence, cigarettes, uncomplicated; Z91.048 Other nonmedicinal substance allergy status; W60.XXXA Contact with nonvenomous plant thorns and spines and sharp leaves, initial encounter
CPT/HCPCS: 96372; 99212; 99214; G0463

== ENCOUNTER 2023-02-22 17:22 | Emergency (ER) | payer OTHER, SELFPAY ==
[2023-02-22 17:40] VITALS: BP 146/86; PULSE 88; RESP 18; TEMP 36.9; O2SAT 98; BMI 29.9
--- NOTE | 2023-02-22 18:17 | EXP.UTC ---
Discharge Plan Disposition Patient Disposition: Home, Self-Care Condition: Good Prescriptions Prescriptions: New prednisone 10 mg tablets,dose pack See Rx Instructions .ROUTE .COMPLEX Qty: 21 0RF Rx Instructions: Take as directed on package instructions No Action tramadol 50 mg tablet 50 mg PO TID PRN (Reason: pain) losartan 100 mg tablet 100 mg PO DAILY prednisone [prednisone] 20 mg tablet 20 mg PO BID Qty: 10 0RF Referrals Follow up/Referrals: Chalo Harrington MD [Primary Care Provider] - See instructions Activity Restrictions/Add. Instructions Additional Instructions/Restrictions: Start oral steriods tomorrow Oatmeal bathes may help to dry up the rash Benadryl may help with itching Return if needed Straight to ER if any life threatening symptoms Clinical Impressions Clinical Impression: Poison izabel dermatitis Instructions Patient Instructions: Summertime Rashes: Poison Iz[place], [place], and [place], DI for Poison Izabel Allergy Discharge ED Provider: Yolande Avila [facility] HPI General Stated complaint: POISON Izabel Mode of Arrival: Ambulatory Source of Information: Patient Limitations: No Limitations Time Seen by Provider: 02/22/23 18:17 Description of Symptoms (Recalled from Triage Doc. 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 and thinks she may have sit in some poison izabel States that she now has poison izabel all over her buttox, lower legs and spreading between her legs Related Data Home Medications Medication Instructions Recorded Confirmed tramadol 50 mg tablet 50 mg PO TID PRN pain 02/06/22 12/19/22 losartan 100 mg tablet 100 mg PO DAILY Hypertension 12/19/22 12/19/22 Previous Rx's Medication Instructions Recorded prednisone 20 mg tablet 20 mg PO BID #10 tabs 12/19/22 prednisone 10 mg tablets in a dose See Rx Instructions PO .COMPLEX 02/22/23 pack #21 tabs Allergies Allergy/AdvReac Type Severity Reaction Status Date / Time codeine [CODEINE] Allergy Unknown Verified 12/19/22 11:56 Worker's Comp Is this a Worker's Comp case?: No [facility] Disclaimer: The information contained in this section may have been updated after the patient was seen, as this information can be updated by other users. 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) Smoking Status: Current every day smoker tobacco type: cigarettes packs per day: 1 alcohol intake: current substance use type: denies use current occupational status: other Travel in the last 8 weeks: None ROS Obtained: Yes All systems reviewed & no additional complaints except as documented and Yes Systems reviewed as appropriate & no additional complaints except as documented Constitutional Constitutional: Reports system reviewed and no additional complaints, except as documented and Reports as per HPI Cardiovascular Cardiovascular: Reports system reviewed and no additional complaints, except as documented and Reports as per HPI Respiratory Respiratory: Reports system reviewed and no additional complaints, except as documented and Reports as per HPI Gastrointestinal Gastrointestingal: Reports system reviewed and no additional complaints, except as documented and as per HPI Musculoskeletal Musculoskeletal: Reports system reviewed and no additional complaints, except as documented and Reports as per HPI Integumentary/Breasts Skin/Breast: Reports system reviewed and no a
[2023-02-22 18:40] VITALS: BP 146/86; PULSE 88; RESP 18; TEMP 36.9; O2SAT 98
[2023-02-22 18:41] LABS: UTC Pregnancy Test, Urine Negative (Negative)
== END 2023-02-22 18:53 | disposition home or self-care (01) ==
PROVIDERS: Emergency Provider Nurse Practitioner; PCP Family Medicine
DX: L23.7 Allergic contact dermatitis due to plants, except food (principal); F17.210 Nicotine dependence, cigarettes, uncomplicated; W60.XXXA Contact with nonvenomous plant thorns and spines and sharp leaves, initial encounter
CPT/HCPCS: 81025; 96372; 99212; 99214; G0463

== ENCOUNTER → 2023-06-28 15:17 | Outpatient (CLI) | payer OTHER, SELFPAY | PROVIDERS: PCP Nurse Practitioner Family; Visit Provider Nurse Practitioner Family | DX: R42 Dizziness and giddiness (principal) | CPT/HCPCS: 87635 ==

== ENCOUNTER 2023-11-01 23:16 | Outpatient (CLI) | payer OTHER, SELFPAY ==
[2023-11-01 17:50] LABS: Adenovirus,PCR Not Detected (NotDetected); Coronavirus 19, PCR Not Detected (NotDetected); Coronavirus 229E Not Detected (NotDetected); Coronavirus NL63 Not Detected (NotDetected); Coronavirus OC43 Not Detected (NotDetected); Coronovirus HKU1,PCR Not Detected (NotDetected); Human Metapneumovirus Not Detected (NotDetected); Influenza A, PCR Not Detected (NotDetected); Influenza AH1, 2009 Not Detected (NotDetected); Influenza AH1, PCR Not Detected (NotDetected); Influenza AH3,PCR Not Detected (NotDetected); Influenza B, PCR Not Detected (NotDetected); Parainfluenza 1, PCR Not Detected (NotDetected); Parainfluenza 2, PCR Not Detected (NotDetected); Parainfluenza 3, PCR Not Detected (NotDetected); Parainfluenza 4, PCR Not Detected (NotDetected); Respiratory Syncytial Virus Not Detected (NotDetected); Rhinovirus/Enterovirus Not Detected (NotDetected)
== END 2023-11-01 23:59 ==
LOC: LAB.DROPOF 23:17
PROVIDERS: PCP Student in an Organized Health Care Education/Training Program; Visit Provider Student in an Organized Health Care Education/Training Program
DX: Z20.822 Contact with and (suspected) exposure to COVID-19 (principal); R05.9 Cough, unspecified; R09.89 Other specified symptoms and signs involving the circulatory and respiratory systems; R09.82 Postnasal drip; R06.2 Wheezing
CPT/HCPCS: 87581; 87632; 87635; 87798

== ENCOUNTER 2024-04-20 16:29 | Outpatient (CLI) | payer OTHER, SELFPAY ==
--- NOTE | 2024-04-20 16:35 | XR_ITS ---
PROCEDURE INFORMATION: Exam: XR Right Ankle Exam date and time: 04/20/2024 4:37 PM Age: 38 years old Clinical indication: Injury or trauma; Fall; Blunt trauma; Ankle; Right; Additional info: R foot pain TECHNIQUE: Imaging protocol: Radiologic exam of the right ankle. Views: 3 or more views. COMPARISON: CR XR FOOT RT MIN 3V 04/20/2024 4:37 PM FINDINGS: Bones/joints: Normal. No acute fracture identified. Soft tissues: Normal. IMPRESSION: No acute findings.
--- NOTE | 2024-04-20 16:35 | XR_ITS ---
PROCEDURE INFORMATION: Exam: XR Right Foot Exam date and time: 04/20/2024 4:37 PM Age: 38 years old Clinical indication: Injury or trauma; Fall; Blunt trauma; Foot; Right; Additional info: Right foot pain TECHNIQUE: Imaging protocol: Radiologic exam of the right foot. Views: 3 or more views. COMPARISON: CR XR FOOT RT MIN 3V 04/20/2024 4:37 PM FINDINGS: Bones/joints: Normal. No acute fracture identified. Soft tissues: Normal. IMPRESSION: No acute findings.
== END 2024-04-20 23:59 | disposition home or self-care (01) ==
LOC: RAD 16:31
PROVIDERS: PCP Nurse Practitioner Family; Visit Provider Student in an Organized Health Care Education/Training Program
DX: M79.671 Pain in right foot (principal)
CPT/HCPCS: 73610; 73630

== ENCOUNTER 2024-12-18 10:09 | Emergency (ER) | payer OTHER, SELFPAY ==
[2024-12-18 10:19] VITALS: BP 174/101; PULSE 96; RESP 20; TEMP 36.9; O2SAT 99; BMI 27.4
[2024-12-18 10:31] VITALS: BP 162/100; PULSE 95; O2SAT 98
--- NOTE | 2024-12-18 10:43 | XR_ITS ---
PROCEDURE INFORMATION: Exam: XR Chest Exam date and time: 12/18/2024 11:20 AM Age: 39 years old Clinical indication: Cough; Additional info: Cough 4-5 months, wheezing TECHNIQUE: Imaging protocol: Radiologic exam of the chest. Views: 2 views. COMPARISON: CR XR MULTIPLE SPINE 6+V 04/14/2022 10:59 AM FINDINGS: Lungs: The lungs are clear. Pleural spaces: No pneumothorax or pleural effusion. Heart/Mediastinum: Cardiomediastinal silhouette is unremarkable. Bones/joints: No acute osseous or soft tissue abnormality. IMPRESSION: No acute cardiopulmonary abnormality.
[2024-12-18 10:46] VITALS: BP 148/101; PULSE 99; O2SAT 100
--- NOTE | 2024-12-18 10:48 | CT_ITS ---
PROCEDURE INFORMATION: Exam: CT Cervical Spine Without Contrast Exam date and time: 12/18/2024 11:35 AM Age: 39 years old Clinical indication: Neck pain; Additional info: Neck pain, radiculopathy, no known trauma TECHNIQUE: Imaging protocol: Computed tomography of the cervical spine without contrast. Radiation optimization: All CT scans at this facility use at least one of these dose optimization techniques: automated exposure control; mA and/or kV adjustment per patient size (includes targeted exams where dose is matched to clinical indication); or iterative reconstruction. COMPARISON: MR CERVICAL SPINE WO CON 03/06/2021 11:04 AM FINDINGS: Bones: No acute fracture. Mild straightening of cervical lordosis may be due to pain or positioning. Mild multilevel degenerative change. Lungs: Lung apices are normal. Soft tissues: Unremarkable. IMPRESSION: No acute fracture. Mild straightening of cervical lordosis may be due to pain or positioning.
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
[2024-12-18] MEDS: METHYLPREDNISOLONE SOD SUCC 125MG VIAL 125 MG IM (10:52)
[2024-12-18] MEDS: ALBUTEROL 0.083% 2.5 MG/3 ML NEB IH (10:52)
[2024-12-18] MEDS: LIDOCAINE 5% TRANSDERMAL PATCH 1 EACH TD (10:56)
[2024-12-18] MEDS: KETOROLAC 30MG/ML VIAL 30 MG IM (10:57)
[2024-12-18 11:24] LABS: Urine Pregnancy, HCG Qual. Negative (Negative)
[2024-12-18] MEDS: METHOCARBAMOL 500MG TABLET 500 MG PO (11:25)
[2024-12-18 11:27] VITALS: BP 141/115; PULSE 86; RESP 18; O2SAT 97
[2024-12-18] MEDS: OXYCODONE 5MG IMMEDIATE RELEASE TABLET 5 MG PO (12:00)
[2024-12-18 12:02] VITALS: BP 136/82; PULSE 80; RESP 17; O2SAT 97
[2024-12-18 12:32] VITALS: BP 136/82; PULSE 81; RESP 18; TEMP 36.8; O2SAT 99
== END 2024-12-18 12:33 | disposition home or self-care (01) ==
PROVIDERS: Physician Assistant; Emergency Provider Emergency Medicine; PCP Nurse Practitioner Family
DX: R06.2 Wheezing (principal); M54.12 Radiculopathy, cervical region; R20.0 Anesthesia of skin
CPT/HCPCS: 71046; 72125; 81025; 96372; 99284; J1885; J2919

== ENCOUNTER 2024-12-26 14:04 | Outpatient (POV) | payer OTHER, SELFPAY ==
[2024-12-26 15:22] VITALS: BP 128/87; PULSE 106; RESP 18; O2SAT 97; BMI 27.4
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
== END 2024-12-26 23:59 | disposition home or self-care (01) ==
LOC: SC.PAIN 14:06
PROVIDERS: PCP Nurse Practitioner Family; Visit Provider Nurse Practitioner Family
DX: M50.10 Cervical disc disorder with radiculopathy, unspecified cervical region (principal); Z79.899 Other long term (current) drug therapy; Z79.891 Long term (current) use of opiate analgesic
CPT/HCPCS: 99212; G0463

== ENCOUNTER 2025-04-23 13:54 | Outpatient (CLI) | payer OTHER, SELFPAY ==
--- OUTSIDE RECORDS SUMMARY | 2025-04-17 23:18 | XMS_ITS | Encounter Summary ---
Author Organization Healthcare Address [address] [place] [address] Care Team Providers Care Endband Cutter Hand Name Role Phone Brittany Morales DANILO Primary Care Provider [phone]- [phone] Reason for Visit * Reason Comments Pelvic Pain Encounter Details Date Type Department Care Team (Late st Contact Info) Description 04/17/2025 11:18 PM EDT - 04/18/2025 4:09 AM EDT Emergency [facility] [address] [place] [address] Joy Pavon MD [address] [place] [address] Vaginal bleeding (Primary Dx) Discharge Disposition: Home or Self Care Social History Tobacco Use Types Packs/Day Years Used Date Smoking Tobacco: Never Assessed Comments Unknown Sex and Gender Information Value Date Recorded Sex Assigned at Not on file Legal Sex Female 7:48 PM EDT Gender Identity Not on file Sexual Orientation Not on file documented as of this encounter Last Filed Vital Signs Vital Sign Reading Time Taken Comments Blood Pressure 122/82 04/18/2025 4:08 AM EDT Pulse 83 04/18/2025 4:08 AM EDT Temperature 36.7 C (98 F) 04/18/2025 4:08 AM EDT Respiratory Rate 18 04/18/2025 4:08 AM EDT Oxygen Saturation 98% 04/18/2025 4:08 AM EDT Inhaled Oxygen Concentration - - Weight - - Height - - Body Mass Index - - documented in this encounter Functional Status * Calculated C-SSRS Risk Score (Lifetime/Recent) Answer Date of Assessment Author No Risk Indicated 04/17/2025 11:51 PM EDT Nenita Kimball ra, RN * Question Answer Date of Assessment Author 1. Wish to be (Past 1 Month) No 04/17/2025 11:51 PM EDT Sarbjit Scruggs RN 2. Non-Specific Active Suicidal Thoughts (Past 1 Month) No 04/17/2025 11:51 PM EDT Sarbjit Scruggs RN 6. Suicidal Behavior (Lifetime) No 04/17/2025 11:51 PM EDT Sarbjit Scruggs RN documented as of this encounter Discharge Instructions * Discharge Instructions* Nancy Mckeon DO - 04/18/2025 4:00 AM EDT You were seen in the ED for pelvic pain and vaginal bleeding. Your work up was overall unremarkablefor any pathology that would require hospitalization or emergent intervention. You should follow upwith your financial underwriter. Please return to ED if your symptoms worsen, change in location, change in severity, new symptoms develop or if you become concerned for your health. documented in this encounter Miscellaneous Notes * ED Triage Notes - Ozzie Salinas RN - 04/17/2025 11:11 PM EDT Pt thinks she had an ovarian cyst rupture yesterday. Pt is having a heavier period than usual, overthe weekend she became bloated, yesterday she felt a lot of pressure in her pelvis, felt a pop, ranto the bathroom and had a large volume of blood come out of her vagina. She is having throbbing/cramping pelvic pain, worse on the left side. documented in this encounter Plan of Treatment Not on file documented as of this encounter Procedures Procedure Name Priority Date/Time Associated Diagnosis Comments US PELVIS TRANSVAGINAL STAT 2:19 AM EDT URINALYSIS WITH REFLEX MICROSCOPIC AND CULTURE STAT 04/18/2025 1:15 AM EDT URINE HARMON PANEL STAT 04/18/2025 1:15 AM EDT EXTRA TUBE GOLD TOP Routine 04/18/2025 1 :15 AM EDT EXTRA TUBE GOLD TOP Routine 04/18/2025 1 :15 AM EDT EXTRA TUBE LIGHT BLUE TOP Routine 04/18/2025 1:15 AM EDT EXTRA TUBES Routine 04/18/2025 1:15 AM EDT URINALYSIS WITH REFLEX MICROSCOPIC STAT 04/18/2025 1:15 AM EDT CBC WITH AUTO DIFFERENTIAL STAT 04/18/2025 1:10 AM EDT TYPE AND SCREEN STAT 04/18/2025 1:10 AM EDT TEST QUALITATIVE PLASMA STAT 04/18/2025 1:10 AM EDT LIPASE, PLASMA STAT 04/18/2025 1:10 AM EDT COMPREHENSIVE METABOLIC PANEL, PLASMA STAT 04/18/2025 1:10 AM EDT documented in this encounter Results * US Pelvis Transvaginal (04/18/2025 2:19 AM EDT) Anatomical Region Laterality Modality Pelvis Ultrasound Impressions 04/18/2025 3:01 AM EDT Unremarkable pelvic examination. CRITICAL RESULT: No. COMMUNICATION: Per this written report. By electronically signing this report, I, the attending physician, attest that I have personally reviewed the images/data for the above examination(s) and agree with the final edited report. Drafted by Aroldo Lorenzo MD on 04/18/2025 2:50 AM Final report signed by Timbo Morales MD on 04/18/2025 3:01 AM Narrative 04/18/2025 3:01 AM EDT CLINICAL INDICATION: vaginal bleeding TECHNIQUE: Transvaginal pelvic ultrasound was performed with the acquisition of multiple grayscale images in various imaging planes. COMPARISON: None. FINDINGS: Uterus: The uterus measures 7.0 x 4.3 x 6.0 cm.. No discrete mass. Retroverted and retroflexed uterus. Endometrium: The endometrium is normal in thickness for age/menstrual status.The endometrium measures 8 mm in thickness. Ovaries: Right: Normal appearance without suspicious mass. The right measures 3.7 x 2.6 x 2.4 cm. There are no adnexal masses. Left: Normal appearance without suspicious mass. The left measures 2.1 x 1.8 x 1.7 cm. There are no adnexal masses. Fluid: There is no significant free fluid within the pelvis. Procedure Note Timbo Morales MD - 04/18/2025 CLINICAL INDICATION: vaginal bleeding TECHNIQUE: Transvaginal pelvic ultrasound was performed with the acquisition ofmultiple grayscale images in various imaging planes. COMPARISON: None. FINDINGS: Uterus: The uterus measures 7.0 x 4.3 x 6.0 cm.. No discrete mass.Retroverted and retroflexed uterus. Endometrium: The endometrium is normal in thickness for age/menstrualstatus.The endometrium measures 8 mm in thickness. Ovaries: Right: Normal appearance without suspicious mass. The right measures 3.7 x2.6 x 2.4 cm. There are no adnexal masses. Left: Normal appearance without suspicious mass. The left measures 2.1 x1.8 x 1.7 cm. There are no adnexal masses. Fluid: There is no significant free fluid within the pelvis. IMPRESSION: Unremarkable pelvic examination. CRITICAL RESULT: No. COMMUNICATION: Per this written report. By electronically signing this report, I, the attending physician, attestthat I have personally reviewed the images/data for the aboveexamination(s) and agree with the final edited report. Drafted by Aroldo Lorenzo MD on 04/18/2025 2:50 AM Final report signed by Timbo Morales MD on 04/18/2025 3:01 AM us Hardeep A Kurt MD IMG US PROCEDURES Final Result * Gold Top (04/18/2025 1:15 AM EDT) Extra Hold for add-ons 04/18/2025 4:02 AM EDT [facility] Comment:Auto resulted. Blood Venous blood specimen / Unknown 04/18/2025 1:15 AM EDT 04/18/2025 1:34 AM EDT us Hardeep Hicks MD LAB BLOOD ORDERABLES Final Resu lt [facility] [address] [place] [address] * Gold Top (04/18/2025 1:15 AM EDT) Extra Hold for add-ons 04/18/2025 4:02 AM EDT [facility] Comment:Auto resulted. Blood Venous blood specimen / Unknown 04/18/2025 1:15 AM EDT 04/18/2025 1:34 AM EDT us Hardeep Hicks MD LAB BLOOD ORDERABLES Final Resu lt Performing Organization Address [facility]/ZIP Co de Phone Number [facility] [address] [place] [address] * Light Blue Top (04/18/2025 1:15 AM EDT) Extra Hold for add-ons 04/18/2025 4:02 AM EDT [facility] Comment:Auto resulted. Blood Venous blood specimen / Unknown 04/18/2025 1:15 AM EDT 04/18/2025 1:34 AM EDT us Hardeep Hicks MD LAB BLOOD ORDERABLES Final Resu lt Performing Organization Address [facility]/ZIP Co de Phone Number [facility] [address] [place] [address] * Urine Harmon Panel (04/18/2025 1:15 AM EDT) Extra Reflex urine culture not indicated 04/18/2025 10:01 AM EDT [facility] Comment: Previously prelim verified as Specimen evaluation in progress on 04/18/2025 at 0301 EDT. Previously prelim verified as Specimen evaluation in progress on 04/18/2025 at 0402 EDT. Previously prelim verified as Specimen evaluation in progress on 04/18/2025 at 0501 EDT. Previously prelim verified as Specimen evaluation in progress on 04/18/2025 at 0601 EDT. Previously prelim verified as Specimen evaluation in progress on 04/18/2025 at 0701 EDT. Previously prelim verified as Specimen evaluation in progress on 04/18/2025 at 0802 EDT. Previously prelim verified as Specimen evaluation in progress on 04/18/2025 at 0901 EDT. Urine Urine specimen obtained by clean catch procedure / Unknown Non-blood Collection / Unknown 04/18/2025 1:15 AM EDT 04/18/2025 1:29 AM EDT us Hardeep Hicks MD LAB URINE ORDERABLES Final Resu lt [facility] [address] [place] [address] * Urinalysis with reflex microscopic (Culture NOT Included) (04/18/2025 1:15 AM EDT) Color, Urine Yellow LAB URINALYSIS - AUTOMATED METHOD 04/18/2025 1:32 AM EDT [facility] Clarity, Urine Clear LAB URINALYSIS - AUTOMATED METHOD 04/18/2025 1:32 AM EDT [facility] Spec [place], Urine 1.020 1.005 - 1.030 LAB URINALYSIS - AUTOMATED METHOD 04/18/2025 1:32 AM EDT [facility] pH, Urine 7.5 5.0 - 8.0 LAB URINALYSIS - AUTOMATED METHOD 04/18/2025 1:32 AM EDT [facility] Protein, Urine Negative Negative mg/dL LAB URINALYSIS - AUTOMATED METHOD 04/18/2025 1:32 AM EDT [facility] Glucose, Urine Negative Negative mg/dL LAB URINALYSIS - AUTOMATED METHOD 04/18/2025 1:32 AM EDT [facility] Ketones, Urine Negative Negative mg/dL LAB URINALYSIS - AUTOMATED METHOD 04/18/2025 1:32 AM EDT [facility] Blood, Urine Negative Negative LAB URINALYSIS - AUTOMATED METHOD 04/18/2025 1:32 AM EDT [facility] Bilirubin, Urine Negative Negative LAB URINALYSIS - AUTOMATED METHOD 04/18/2025 1:32 AM EDT [facility] Urobilinogen, Urine 1.0 0.2 to 1.0 mg/dL LAB URINALYSIS - AUTOMATED METHOD 04/18/2025 1:32 AM EDT [facility] Leukocytes, Urine Negative Negative LAB URINALYSIS - AUTOMATED METHOD 04/18/2025 1:32 AM EDT [facility] Nitrite, Urine Negative Negative LAB URINALYSIS - AUTOMATED METHOD 04/18/2025 1:32 AM EDT [facility] Urine Urine specimen obtained by clean catch procedure / Unknown Non-blood Collection / Unknown 04/18/2025 1:15 AM EDT 04/18/2025 1:28 AM EDT us Hardeep Hicks MD LAB URINE ORDERABLES Final Resu lt Performing Organization Address City/[facility]/ZIP Co de Phone Number [facility] [address] [place] [address] * Type and screen (04/18/2025 1:10 AM EDT) ABO/Rh O Negative 04/18/2025 1:16 AM EDT BLOOD BANK Antibody Screen Negative 04/18/2025 1:16 AM EDT BLO[facility] BANK Specimen Expiration 04/21/2025 23:59 04/18/2025 1:16 AM EDT BLOOD BANK Blood Venous blood specimen / Unknown Venipuncture / Unknown 04/18/2025 1:10 AM EDT 04/18/2025 1:16 AM EDT us Hardeep Hicks MD LAB BLOOD BANK TEST ORDERABLES Final Result Performing Organization Address City/[facility]/ZIP Co de Phone Number BLOOD BANK [address] [place] [address], [place] * hCG qualitative (04/18/2025 1:10 AM EDT) Test Negative Negative 04/18/2025 1:45 AM EDT [facility] Blood Venous blood specimen / Unknown Venipuncture / Unknown 04/18/2025 1:10 AM EDT 04/18/2025 1:16 AM EDT Narrative [facility] - 04/18/2025 1:45 AM EDT Reference Range: Males and non- females: Negative. us Hardeep Hicks MD LAB BLOOD ORDERABLES Final Resu lt Performing Organization Address City/[facility]/ZIP Co de Phone Number [facility] [address] [place] [address] * Lipase (04/18/2025 1:10 AM EDT) Lipase, Plasma 26 19 - 63 U/L 04/18/2025 1:45 AM EDT [facility] Blood Venous blood specimen / Unknown Venipuncture / Unknown 04/18/2025 1:10 AM EDT 04/18/2025 1:16 AM EDT us Hardeep Hicks MD LAB BLOOD ORDERABLES Final Resu lt [facility] [address] [place] [address] * CMP (04/18/2025 1:10 AM EDT) Glucose, Plasma 94 74 - 99 mg/dL 04/18/2025 1:45 AM EDT [facility] BUN, Plasma 13 7 - 21 mg/dL 04/18/2025 1:45 AM EDT [facility] Creatinine, Plasma 0.66 0.60 - 1.10 mg/dL 04/18/2025 1:45 AM EDT [facility] BUN/Creatinine Ratio 20 04/18/2025 1:45 AM EDT [facility] Sodium, Plasma 140 136 - 145 mmol/L 04/18/2025 1:45 AM EDT [facility] Potassium, Plasma 4.4 3.6 - 4.9 mmol/L 04/18/2025 1:45 AM EDT [facility] Chloride, Plasma 102 97 - 107 mmol/L 04/18/2025 1:45 AM EDT [facility] CO2, Plasma 28 22 - 29 mmol/L 04/18/2025 1:45 AM EDT [facility] Anion Gap 10 6 - 16 mmol/L 04/18/2025 1:45 AM EDT [facility] Total Calcium, Plasma 9.2 8.9 - 10.2 mg/dL 04/18/2025 1:45 AM EDT [facility] Total Protein 6.7 6.3 - 7.9 g/dL 04/18/2025 1:45 AM EDT [facility] Albumin, Plasma 4.3 3.5 - 5.2 g/dL 04/18/2025 1:45 AM EDT [facility] AST, Plasma 13 10 - 35 U/L 04/18/2025 1:45 AM EDT [facility] ALT, Plasma 12 10 - 35 U/L 04/18/2025 1:45 AM EDT [facility] Alkaline Phosphatase, Plasma 76 35 - 104 U/L 04/18/2025 1:45 AM EDT [facility] Total Bilirubin, Plasma 0.2 0.2 - 1.1 mg/dL 04/18/2025 1:45 AM EDT [facility] eGFRcr 114.6 mL/min/1.7 3m*2 04/18/2025 1:45 AM EDT [facility] Comment:Reported eGFRcr in m L/min/1.73m2 is based the CKD-EPI 2020 equation that does not use a race coefficient. Blood Venous blood specimen / Unknown Venipuncture / Unknown 04/18/2025 1:10 AM EDT 04/18/2025 1:16 AM EDT us Hardeep Hicks MD LAB BLOOD ORDERABLES Final Resu lt [facility] [address] [place] [address] * (ABNORMAL) CBC w/diff (04/18/2025 1:10 AM EDT) WBC Count 12.09(H) 3.70 - 10.30 10*3/uL LAB HEMATOLOGY METHOD 04/18/2025 1:33 AM EDT [facility] RBC Count 3.86(L) 3.90 - 5.20 10*6/uL LAB HEMATOLOGY METHOD 04/18/2025 1:33 AM EDT [facility] HGB 11.9 11.2 - 15.7 g/dL LAB HEMATOLOGY METHOD 04/18/2025 1:33 AM EDT [facility] HCT 35.6 34.0 - 45.0 % LAB HEMATOLOGY METHOD 04/18/2025 1:33 AM EDT [facility] Platelet Count 307 155 - 369 10*3/uL LAB HEMATOLOGY METHOD 04/18/2025 1:33 AM EDT [facility] MCV 92 79 - 98 fL LAB HEMATOLOGY METHOD 04/18/2025 1:33 AM EDT [facility] MCH 30.8 26.0 - 32.0 pg LAB HEMATOLOGY METHOD 04/18/2025 1:33 AM EDT [facility] MCHC 33.4 30.7 - 35.5 g/dL LAB HEMATOLOGY METHOD 04/18/2025 1:33 AM EDT [facility] RDW 12.2 11.5 - 14.5 % LAB HEMATOLOGY METHOD 04/18/2025 1:33 AM EDT [facility] MPV 9.7 8.8 - 12.5 fL LAB HEMATOLOGY METHOD 04/18/2025 1:33 AM EDT [facility] nRBC 0.0 <=0.0 per 100 WBCs LAB HEMATOLOGY METHOD 04/18/2025 1:33 AM EDT [facility] Differential Type Automated LAB HEMATOLOGY METHOD 04/18/2025 1:33 AM EDT [facility] Neutrophils % 65 % LAB HEMATOLOGY METHOD 04/18/2025 1:33 AM EDT [facility] Lymphocytes % 28 % LAB HEMATOLOGY METHOD 04/18/2025 1:33 AM EDT [facility] Monocytes % 5 % LAB HEMATOLOGY METHOD 04/18/2025 1:33 AM EDT [facility] Eosinophils % 2 % LAB HEMATOLOGY METHOD 04/18/2025 1:33 AM EDT [facility] Basophils % 0 % LAB HEMATOLOGY METHOD 04/18/2025 1:33 AM EDT [facility] Immature Granulocytes % 0 % LAB HEMATOLOGY METHOD 04/18/2025 1:33 AM EDT [facility] Neutrophils Absolute 7.79(H) 1.60 - 6.10 10*3/uL LAB HEMATOLOGY METHOD 04/18/2025 1:33 AM EDT [facility] Lymphocytes Absolute 3.40 1.20 - 3.90 10*3/uL LAB HEMATOLOGY METHOD 04/18/2025 1:33 AM EDT [facility] Monocytes Absolute 0.57 0.30 - 0.90 10*3/uL LAB HEMATOLOGY METHOD 04/18/2025 1:33 AM EDT [facility] Eosinophils Absolute 0.25 0.00 - 0.50 10*3/uL LAB HEMATOLOGY METHOD 04/18/2025 1:33 AM EDT [facility] Basophils Absolute 0.04 0.00 - 0.10 10*3/uL LAB HEMATOLOGY METHOD 04/18/2025 1:33 AM EDT [facility] Immature Granulocytes Absolute 0.04 0.00 - 0.06 10*3/uL LAB HEMATOLOGY METHOD 04/18/2025 1:33 AM EDT [facility] Blood Venous blood specimen / Unknown Venipuncture / Unknown 04/18/2025 1:10 AM EDT 04/18/2025 1:30 AM EDT Narrative [facility] - 04/18/2025 1:33 AM EDT Therapeutic decision making should be based on absolute values, rather than percentages. us Hardeep Hicks MD LAB BLOOD ORDERABLES Final Resu lt [facility] [address] [place] [address] documented in this encounter Visit Diagnoses Diagnosis Vaginal bleeding- Primary Other specified noninflammatory disorder of vagina documented in this encounter Administered Medications Inactive Administered Medications - up to 3 most recent administrations Medication Order MAR Action Action Date Dose Rate Site morphine PF 4 mg 4 mg, Intravenous, Once, 1 dose, On Wed04/18/25 at 0115, STAT Given 04/18/2025 1:16 AM EDT 4 mg ondansetron (Zofran) injection 4 mg 4 mg, Intravenous, Once, 1 dose, On Wed04/18/25 at 0115, STAT Given 04/18/2025 1:16 AM EDT 4 mg documented in this encounter Active and Recently Administered Medications Times are shown in EDT. Scheduled Medication Order 04/16/2025 04/17/2025 04/18/2025 acetaminophen (Tylenol) tablet 1,000 mg 1,000 mg, Oral, Once, 1 dose, On Wed04/18/25 at 0115, STAT 0116 (Not Given - Pr ovider: Nenita Scruggs RN - Reason: Hold for condition: must add comment - Comment: pt took 1000mg of tylenol at 11pm) morphine PF 4 mg (COMPLETED) 4 mg, Intravenous, Once, 1 dose, On Wed04/18/25 at 0115, STAT 0116 (Given - Provid er: Nenita Scruggs RN) ondansetron (Zofran) injection 4 mg (COMPLETED) 4 mg, Intravenous, Once, 1 dose, On Wed04/18/25 at 0115, STAT 0116 (Given - Provid er: Nenita Scruggs RN) documented in this encounter Care Teams Endband Cutter Hand Relationship Specialty Start Date End Date Brittany Morales APRN [address] [place] [id number] PCP - General 04/17/25 documented as of this encounter
--- OUTSIDE RECORDS SUMMARY | 2025-04-24 10:09 | XMS_ITS | Encounter Summary ---
Author Organization Healthcare Address [address] [id number] Care Team Providers Care Life Science Technician Name Role Phone Brittany Morales SWIMMING POOL ATTENDANT Primary Care Provider +1- [phone] Encounter Details Date Type Department Care Team (Latest Contact Info) Description 04/17/2025 Travel Social History Tobacco Use Types Packs/Day Years Used Date Smoking Tobacco: Never Assessed Comments Unknown Sex and Gender Information Value Date Recorded Sex Assigned at Not on file Legal Sex Female 7:48 PM EDT Gender Identity Not on file Sexual Orientation Not on file documented as of this encounter Functional Status * Calculated C-SSRS [...] Scruggs RN documented as of this encounter Plan of Treatment Not on file documented as of this encounter Visit Diagnoses Not on filedocumented in this encounter Care Teams Life Science Technician Relationship Specialty Start Date End Date Brittany Morales APRN [address] [place] [address] PCP - General 04/17/25 documented as of this encounter
--- OUTSIDE RECORDS SUMMARY | 2025-04-24 10:09 | XMS_ITS | Encounter Summary ---
Author Organization Healthcare Address [address] [place] [address] Care Team Providers Care Campus Safety Officer Name Role Phone Brittany Morales APRN Primary Care Provider [phone]- [phone] Encounter Details Date Type Department Care Team (Latest Contact Info) Description 04/18/2025 Travel Social History Tobacco Use Types Packs/Day Years Used Date Smoking Tobacco: Never Assessed Comments Unknown Sex and Gender Information Value Date Recorded Sex Assigned at Not on file Legal Sex Female 7:48 PM EDT Gender Identity Not on file Sexual Orientation Not on file documented as of this encounter Plan of Treatment Not on file documented as of this encounter Visit Diagnoses Not on filedocumented in this encounter Care Teams Campus Safety Officer Relationship Specialty Start Date End Date Brittany Morales APRN [address] [place] [address] PCP - General 04/17/25 documented as of this encounter
--- OUTSIDE RECORDS SUMMARY | 2025-04-24 10:09 | XMS_ITS | Clinical Summary ---
Author Organization [facility] Address [address] [place] [address] Care Team Providers Care Tempering Machine Operator Name Role Phone Chalo Harrington MD Primary Care Provider + Allergies Active Allergy Reactions Criticality Noted Date Comments Codeine Hives,Swelling 07/24/2017 Medications Multiple Vitamins-Minera ls (MULTIVITAMIN WOMEN PO) Take 1 tablet by mouth. Active ibuprofen (ADVIL,MOTRIN) 600 MG tablet Take 1 tablet by mouth 3 (Three) Times a Day. 30 tablet 07/24/2017 Active Cyanocobalamin 5000 MCG sublingual tablet Active Lidocaine Pain Relief 4 % patch 11/17/2021 Active loratadine (CLARITIN) 10 MG tablet Take 10 mg by mouth Daily. Active traMADol (ULTRAM) 50 MG tabletIndicatio ns:Right leg pain Take 1 tablet by mouth At Night As Needed for Moderate Pain or Severe Pain . 7 tablet 12/09/2021 Active Active Problems No known active problems Social History Tobacco Use Types Packs/Day Years Used Date Smoking Tobacco: Every Day Cigarettes Smokeless Tobacco: Never Tobacco Cessation:Ready to Q uit: No Alcohol Use Standard Drinks/Week Comments Yes 0 (1 standard drink = 0.6 oz pur e alcohol) occasionally PHQ-2 Answer Date Recorded Retired PHQ-9: Brief Depression Severity Measure Score 4 11/21/2021 Abuse Screen Answer Date Recorded Unsafe at Home or Work/School Not on file Feels Threatened by Someone? Not on file 05/2023 Does Anyone Keep You from Co ntacting Others or Doint Things Outside the Home? Not on file 05/05/2023 Physical Sign of Abuse Present Not on file 1 Housing Stability Answer Date Recorded Current Living Arrangements Not on file 04/25 Potentially Unsafe Housing Conditions Not on yasir e 05/05/2023 Family and Community Support Answer Thiago e Recorded Help with Day-to-Day Activities Not on file 05/05/2023 Lonely or Isolated Not on file 05/05/2023 Employment Answer Date Recorded Do you want help finding or keeping work or a cheryl b? Not on file 05/05/2023 Disabilities Answer Date Recorded Concentrating, Remembering, or Making Decisions Difficulty Not on file 05/05/2023 Doing Errands Independently Difficulty Not on fi le 05/05/2023 Education Answer Date Recorded Help with school or training? Not on file Preferred Language Not on file 05/05/2023 Comments Unknown Sex and Gender Information Value Date Recorded Sex Assigned at Not on file Legal Sex Female 8:17 PM EST Gender Identity Not on file Sexual Orientation Not on file Last Filed Vital Signs Vital Sign Reading Time Taken Comments Blood Pressure 140/70 11/21/2021 8:19 AM EDT Pulse 84 11/21/2021 8:19 AM EDT Temperature 36.3 C (97.3 F) 11/21/2021 8:19 AM EDT Respiratory Rate 20 11/21/2021 8:19 AM EDT Oxygen Saturation 98% 11/21/2021 8:19 AM EDT Inhaled Oxygen Concentration - - Weight 74.4 kg (164 lb) 11/21/2021 8:19 AM EDT Height 160 cm (5' 3 ) 11/21/2021 8:19 AM EDT Body Mass Index 29.05 11/21/2021 8:19 AM EDT Plan of Treatment Health Maintenance Due Date Last Done Comments Annual Gynecologic Pelvic an d Breast Exam 1985 TDAP/TD VACCINES (1 - Tdap) 2004 ANNUAL PHYSICAL 11/21/2021 HEPATITIS C SCREENING 11/21/2021 INFLUENZA VACCINE 02/23/2025 Pneumococcal Vaccine 0-49 Aged Out No longer eligible based on patient's age to complete this topic Insurance [facility] Care Teams Tempering Machine Operator Relationship Specialty Start Date End Date Chalo Harrington MD PCP - General Family Medicine 07/24/17
--- OUTSIDE RECORDS SUMMARY | 2025-04-24 10:09 | XMS_ITS | Clinical Summary ---
Author Organization Healthcare Address [address] [id number] Care Team Providers Care Chief Pharmacist Name Role Phone Brittany Morales DANILO Primary Care Provider +1- [phone] Allergies Active Allergy Reactions Criticality Noted Date Comments Kali Katz 04/17/2025 Encounters Date Type Department Care Team Description 04/18/2025 Travel 04/17/2025 11:18 PM EDT - 04/18/2025 4:09 AM EDT Emergency [facility] [address] [place] [address] Joy Pavon MD Vaginal bleeding (Primary Dx) Discharge Disposition: Home or Self Care 04/17/2025 Travel from Last 3 Months Immunizations Immunization Administration Dates Next Due [place] COVID-19 Vaccine (Purple Cap) 12 + 12/19/2020 Social History Tobacco Use Types Packs/Day Years [...] - - Body Mass Index - - Plan of Treatment Health Maintenance Due Date Last Done Comments [facility]-Depression Screening 1985 [facility]-HIV Screening 1985 [facility]-Hepatitis C Screening 1985 [facility]-Infant/Child/Adol SDOH Screenings 1985 [facility]-Varicella Vaccines (1 of 2 - 13+ 2-dose series) 1998 [facility]-DTaP,Tdap,and Td Vaccines (2 - Tdap) 08/24/2000 08/23/2000 [facility]- SDOH Screenings 10/15/2003 [facility]-Adult SDOH Screenings 10/15/2003 [facility]-Pap Smear 2006 HPV Vaccines (1 - 3-dose SCDM series) 2012 [facility]-Cervical Cancer Screening 10/15/2015 [facility]-HPV/Cotest 10/15/2015 [id number] Vaccine (3 - season) 2025 12/19/2020, 11/22/2020 [facility]-Influenza Vaccine (#1) 03/26/202508/18, 05/21/2015, 06/27/2007 [facility]-Zoster Vaccines (1 of 2) 10/15/2035 [facility]-Hepatitis B Vaccines Completed 000, 04/26/1998, 02/28/1998 [facility]-HIB Vaccines Aged Out No longer e ligible based on patient's age to complete this topic [facility]-Hepatitis A Vaccines Aged Out No longer eligible based on patient's age to complete this topic [facility]-IPV Vaccines Aged Out No longer e ligible based on patient's age to complete this topic [facility]-Pneumococcal Vaccine: Pediatrics (0 to 5 Years) and At-Risk Patients (6 to 49 Years) Aged Out No longer eligible b ased on patient's age to complete this topic [facility]-Rotavirus Vaccines Aged Out No lo nger eligible based on patient's age to complete this topic Procedures Procedure Name Priority Date/Time Associated Diagnosis Comments US PELVIS TRANSVAGINAL STAT 2:19 AM EDT EXTRA TUBE GOLD TOP Routine 04/18/2025 1 :15 AM EDT EXTRA TUBE GOLD TOP Routine 04/18/2025 1 :15 AM EDT EXTRA TUBE LIGHT BLUE TOP Routine 04/18/2025 1:15 AM EDT EXTRA TUBES Routine 04/18/2025 1:15 AM EDT URINE HARMON PANEL STAT 04/18/2025 1:15 AM EDT URINALYSIS WITH REFLEX MICROSCOPIC STAT 04/18/2025 1:15 AM EDT URINALYSIS WITH REFLEX MICROSCOPIC AND CULTURE STAT 04/18/2025 1:15 AM EDT TYPE AND SCREEN STAT 04/18/2025 1:10 AM EDT TEST QUALITATIVE PLASMA STAT 04/18/2025 1:10 AM EDT LIPASE, PLASMA STAT 04/18/2025 1:10 AM EDT COMPREHENSIVE METABOLIC PANEL, PLASMA STAT 04/18/2025 1:10 AM EDT CBC WITH AUTO DIFFERENTIAL STAT 04/18/2025 1:10 AM EDT from Last 3 Months Results * US Pelvis Transvaginal (04/18/2025 2:19 [...] MD on 04/18/2025 3:01 AM us Hardeep Hicks MD IM US PROCEDURES Final Result * Urine Harmon Panel (04/18/2025 1:15 AM EDT) Extra Reflex urine culture not indicated 04/18/2025 10:01 AM EDT [facility] Comment: Previously prelim verified as Specimen [...] ORDERABLES Final Resu lt Performing Organization Address [facility]/ZIP Co de Phone Number [facility] [address] [place] [address] * Gold Top (04/18/2025 1:15 AM EDT) Only the most recent of2 resultswithin the time period is included. Extra Hold for add-ons 04/18/2025 4:02 AM EDT [facility] Comment:Auto resulted. Blood Venous blood specimen / Unknown 04/18/2025 1:15 AM EDT 04/18/2025 1:34 AM EDT us Hardeep Hicks MD LAB BLOOD ORDERABLES Final Resu lt [facility] [address] [place] [address] * Light Blue Top (04/18/2025 1:15 AM EDT) Extra Hold for add-ons 04/18/2025 4:02 AM EDT [facility] Comment:Auto resulted. Blood Venous blood specimen / Unknown 04/18/2025 1:15 AM EDT 04/18/2025 1:34 AM EDT us Hardeep Hicks MD LAB BLOOD ORDERABLES Final Resu lt [facility] [address] [place] [address] * Urinalysis with reflex microscopic (Culture NOT Included) (04/18/2025 1:15 AM EDT) Color, Urine Yellow LAB URINALYSIS - AUTOMATED METHOD 04/18/2025 1:32 AM EDT [facility] Clarity, Urine Clear LAB URINALYSIS - AUTOMATED METHOD 04/18/2025 1:32 AM EDT [facility] Spec [place], Urine 1.020 1.005 - 1.030 LAB URINALYSIS - AUTOMATED METHOD 04/18/2025 1:32 AM EDT [facility] pH, Urine 7.5 5.0 - 8.0 LAB URINALYSIS - AUTOMATED METHOD 04/18/2025 1:32 AM EDT [facility] Protein, Urine Negative Negative mg/dL LAB URINALYSIS - AUTOMATED METHOD 04/18/2025 1:32 AM EDT [facility] Glucose, Urine Negative Negative mg/dL LAB URINALYSIS - AUTOMATED METHOD 04/18/2025 1:32 AM EDT [facility] Ketones, Urine Negative Negative mg/dL LAB URINALYSIS - AUTOMATED METHOD 04/18/2025 1:32 AM EDT [facility] Blood, Urine Negative Negative LAB URINALYSIS - AUTOMATED METHOD 04/18/2025 1:32 AM EDT [facility] Bilirubin, Urine Negative Negative LAB URINALYSIS - AUTOMATED METHOD 04/18/2025 1:32 AM EDT [facility] Urobilinogen, Urine 1.0 0.2 to 1.0 mg/dL LAB URINALYSIS - AUTOMATED METHOD 04/18/2025 1:32 AM EDT [facility] Leukocytes, Urine Negative Negative LAB URINALYSIS - AUTOMATED METHOD 04/18/2025 1:32 AM EDT [facility] Nitrite, Urine Negative Negative LAB URINALYSIS - AUTOMATED METHOD 04/18/2025 1:32 AM EDT [facility] Urine Urine specimen obtained by clean catch procedure / Unknown Non-blood Collection / Unknown 04/18/2025 1:15 AM EDT 04/18/2025 1:28 AM EDT us Hardeep Hicks MD LAB URINE ORDERABLES Final Resu lt [facility] [address] [place] [address] * (ABNORMAL) CBC w/diff (04/18/2025 1:10 AM EDT) WBC Count 12.09(H) 3.70 - 10.30 10*3/uL LAB HEMATOLOGY METHOD 04/18/2025 1:33 AM EDT [facility] RBC Count 3.86(L) 3.90 - 5.20 10*6/uL LAB HEMATOLOGY METHOD 04/18/2025 1:33 AM EDT [facility] HGB 11.9 11.2 - 15.7 g/dL LAB HEMATOLOGY METHOD 04/18/2025 1:33 AM EDT [facility] HCT 35.6 34.0 - 45.0 % LAB HEMATOLOGY METHOD 04/18/2025 1:33 AM EDT [facility] Platelet Count 307 155 - 369 10*3/uL LAB HEMATOLOGY METHOD 04/18/2025 1:33 AM EDT [facility] MCV 92 79 - 98 fL LAB HEMATOLOGY METHOD 04/18/2025 1:33 AM EDT [facility] MCH 30.8 26.0 - 32.0 pg LAB HEMATOLOGY METHOD 04/18/2025 1:33 AM EDT [facility] MCHC 33.4 30.7 - 35.5 g/dL LAB HEMATOLOGY METHOD 04/18/2025 1:33 AM EDT [facility] RDW 12.2 11.5 - 14.5 % LAB HEMATOLOGY METHOD 04/18/2025 1:33 AM EDT [facility] MPV 9.7 8.8 - 12.5 fL LAB HEMATOLOGY METHOD 04/18/2025 1:33 AM EDT [facility] nRBC 0.0 <=0.0 per 100 WBCs LAB HEMATOLOGY METHOD 04/18/2025 1:33 AM EDT [facility] Differential Type Automated LAB HEMATOLOGY METHOD 04/18/2025 1:33 AM EDT [facility] Neutrophils % 65 % LAB HEMATOLOGY METHOD 04/18/2025 1:33 AM EDT [facility] Lymphocytes % 28 % LAB HEMATOLOGY METHOD 04/18/2025 1:33 AM EDT [facility] Monocytes % 5 % LAB HEMATOLOGY METHOD 04/18/2025 1:33 AM EDT [facility] Eosinophils % 2 % LAB HEMATOLOGY METHOD 04/18/2025 1:33 AM EDT [facility] Basophils % 0 % LAB HEMATOLOGY METHOD 04/18/2025 1:33 AM EDT [facility] Immature Granulocytes % 0 % LAB HEMATOLOGY METHOD 04/18/2025 1:33 AM EDT [facility] Neutrophils Absolute 7.79(H) 1.60 - 6.10 10*3/uL LAB HEMATOLOGY METHOD 04/18/2025 1:33 AM EDT [facility] Lymphocytes Absolute 3.40 1.20 - 3.90 10*3/uL LAB HEMATOLOGY METHOD 04/18/2025 1:33 AM EDT [facility] Monocytes Absolute 0.57 0.30 - 0.90 10*3/uL LAB HEMATOLOGY METHOD 04/18/2025 1:33 AM EDT [facility] Eosinophils Absolute 0.25 0.00 - 0.50 10*3/uL LAB HEMATOLOGY METHOD 04/18/2025 1:33 AM EDT [facility] Basophils Absolute 0.04 0.00 - 0.10 10*3/uL LAB HEMATOLOGY METHOD 04/18/2025 1:33 AM EDT [facility] Immature Granulocytes Absolute 0.04 0.00 - 0.06 10*3/uL LAB HEMATOLOGY METHOD 04/18/2025 1:33 AM EDT [facility] Blood Venous blood specimen / Unknown Venipuncture / Unknown 04/18/2025 1:10 AM EDT 04/18/2025 1:30 AM EDT [facility] - 04/18/2025 1:33 AM EDT Therapeutic decision making should be based on absolute values, rather than percentages. us Hardeep Hicks MD LAB BLOOD ORDERABLES Final Resu lt Performing Organization Address City/[facility]/ZIP Co de Phone Number [facility] [address] [place] [address] * Type and screen (04/18/2025 1:10 AM EDT) ABO/Rh O Negative 04/18/2025 1:16 AM EDT [facility] Antibody Screen Negative 04/18/2025 1:16 AM EDT [facility] Specimen Expiration 04/21/2025 23:59 04/18/2025 1:16 AM EDT [facility] Blood Venous blood specimen / Unknown Venipuncture / Unknown 04/18/2025 1:10 AM EDT 04/18/2025 1:16 AM EDT Hardeep Hicks MD LAB BLOOD BANK TEST ORDERABLES Final Result Performing Organization Address [facility] de Phone Number BLOOD BANK [address] * hCG qualitative (04/18/2025 1:10 AM EDT) Test Negative Negative 04/18/2025 1:45 AM EDT [facility] Blood Venous blood specimen / Unknown Venipuncture / Unknown 04/18/2025 1:10 AM EDT 04/18/2025 1:16 AM EDT Narrative [facility] - 04/18/2025 1:45 AM EDT Reference Range: Males and non- females: Negative. us Hardeep Hicks MD LAB BLOOD ORDERABLES Final Resu lt Performing Organization Address City/[facility]/ZIP Co de Phone Number [facility] [address] [place] [address] * Lipase (04/18/2025 1:10 AM EDT) Lipase, Plasma 26 19 - 63 U/L 04/18/2025 1:45 AM EDT [facility] Blood Venous blood specimen / Unknown Venipuncture / Unknown 04/18/2025 1:10 AM EDT 04/18/2025 1:16 AM EDT us Hardeep Hicks MD LAB BLOOD ORDERABLES Final Resu lt [facility] [address] [place] [address] * CMP (04/18/2025 1:10 AM EDT) Glucose, Plasma 94 74 - 99 mg/dL 04/18/2025 1:45 AM EDT [facility] BUN, Plasma 13 7 - 21 mg/dL 04/18/2025 1:45 AM EDT [facility] Creatinine, Plasma 0.66 0.60 - 1.10 mg/dL 04/18/2025 1:45 AM EDT [facility] BUN/Creatinine Ratio 20 04/18/2025 1:45 AM EDT [facility] Sodium, Plasma 140 136 - 145 mmol/L 04/18/2025 1:45 AM EDT [facility] Potassium, Plasma 4.4 3.6 - 4.9 mmol/L 04/18/2025 1:45 AM EDT [facility] Chloride, Plasma 102 97 - 107 mmol/L 04/18/2025 1:45 AM EDT [facility] CO2, Plasma 28 22 - 29 mmol/L 04/18/2025 1:45 AM EDT [facility] Anion Gap 10 6 - 16 mmol/L 04/18/2025 1:45 AM EDT [facility] Total Calcium, Plasma 9.2 8.9 - 10.2 mg/dL 04/18/2025 1:45 AM EDT [facility] Total Protein 6.7 6.3 - 7.9 g/dL 04/18/2025 1:45 AM EDT [facility] Albumin, Plasma 4.3 3.5 - 5.2 g/dL 04/18/2025 1:45 AM EDT [facility] AST, Plasma 13 10 - 35 U/L 04/18/2025 1:45 AM EDT [facility] ALT, Plasma 12 10 - 35 U/L 04/18/2025 1:45 AM EDT [facility] Alkaline Phosphatase, Plasma 76 35 - 104 U/L 04/18/2025 1:45 AM EDT [facility] Total Bilirubin, Plasma 0.2 0.2 - 1.1 mg/dL 04/18/2025 1:45 AM EDT [facility] eGFRcr 114.6 mL/min/1.7 3m*2 04/18/2025 1:45 AM EDT [facility] Comment:Reported eGFRcr in m L/min/1.73m2 is based the CKD-EPI 2020 equation that does not use a race coefficient. Blood Venous blood specimen / Unknown Venipuncture / Unknown 04/18/2025 1:10 AM EDT 04/18/2025 1:16 AM EDT us Hardeep Hicks MD LAB BLOOD ORDERABLES Final Resu lt [facility] [address] [place] [address] from Last 3 Months Insurance [facility] MED[facility] [id number] [id number] Care Teams Chief Pharmacist Relationship Specialty Start Date End Date Brittany Morales APRN [address] [place] [address] PCP - General 04/17/25
== END 2025-04-23 23:59 | disposition home or self-care (01) ==
LOC: LAB.DROPOF 04-24 10:07
PROVIDERS: PCP Nurse Practitioner Family; Visit Provider Nurse Practitioner Family
DX: J02.9 Acute pharyngitis, unspecified (principal); R05.9 Cough, unspecified
CPT/HCPCS: 87070

== ENCOUNTER 2025-07-03 02:01 | Emergency (ER) | payer OTHER, SELFPAY ==
--- OUTSIDE RECORDS SUMMARY | 2025-07-03 02:09 | XMS_ITS | Clinical Summary ---
Author Organization Healthcare Address [address] [id number] Care Team Providers Care Armed Security Professional Name Role Phone Brittany Morales DANILO Primary Care Provider +1- [phone] Allergies Active Allergy Reactions Criticality Noted Date Comments Kali Katz 04/17/2025 Encounters Date Type Department Care Team Description 04/18/2025 Travel 04/17/2025 11:18 PM EDT - 04/18/2025 4:09 AM EDT Emergency [facility] Emergency Department [address] [place] [address] Joy Pavon MD Vaginal bleeding (Primary Dx) Discharge Disposition: Home or Self Care 04/17/2025 Travel from Last 3 Months Immunizations Immunization Administration Dates Next Due [place] COVID-19 Vaccine (Purple Cap) 12 + 12/19/2020 [...] [facility]-HIV Screening 1985 [facility]-Hepatitis C Screening 1985 [facility]-/Child/Adol SDOH Screenings 1985 [facility]-Varicella Vaccines (1 of 2 - 13+ 2-dose series) 1998 [facility]-DTaP,Tdap,and Td Vaccines (2 - Tdap) 08/24/2000 08/23/2000 [facility]- SDOH Screenings 10/15/2003 [facility]-Adult SDOH Screenings 10/15/2003 [facility]-Pap Smear 2006 HPV Vaccines (1 - 3-dose SCDM series) 2012 [facility]-Cervical Cancer Screening 10/15/2015 [facility]-HPV/Cotest 10/15/2015 [id number] Vaccine (3 - season) 2025 12/19/2020, 11/22/2020 [...] culture not indicated 04/18/2025 10:01 AM EDT [facility] Comment: Previously prelim verified as [...] ORDERABLES Final Resu lt Performing Organization Address [facility]/ZIP Co de Phone Number [facility] [address] [place] [address] * Gold Top (04/18/2025 1:15 AM EDT) Only the most recent of2 resultswithin the time period is included. Extra Hold for add-ons 04/18/2025 4:02 AM EDT [facility] Comment:Auto resulted. Blood Venous blood specimen / Unknown 04/18/2025 1:15 AM EDT 04/18/2025 1:34 AM EDT us Hardeep Hicks MD LAB BLOOD ORDERABLES Final Resu lt [facility] [address] [place] [address] * Light Blue Top (04/18/2025 1:15 AM EDT) Extra Hold for add-ons 04/18/2025 4:02 AM EDT [facility] Comment:Auto resulted. Blood Venous blood specimen / Unknown 04/18/2025 1:15 AM EDT 04/18/2025 1:34 AM EDT us Hardeep Hicks MD LAB BLOOD ORDERABLES Final Resu lt [facility] [address] [place] [address] * Urinalysis with reflex microscopic (Culture NOT Included) (04/18/2025 1:15 AM EDT) Color, Urine Yellow LAB URINALYSIS - AUTOMATED METHOD 04/18/2025 1:32 AM EDT [facility] Clarity, Urine Clear LAB URINALYSIS - AUTOMATED METHOD 04/18/2025 1:32 AM EDT [facility] Spec [place], Urine 1.020 1.005 - 1.030 LAB URINALYSIS - AUTOMATED METHOD 04/18/2025 1:32 AM EDT [facility] pH, Urine 7.5 5.0 - 8.0 LAB URINALYSIS - AUTOMATED METHOD 04/18/2025 1:32 AM EDT [facility] Protein, Urine Negative Negative mg/dL LAB URINALYSIS - AUTOMATED METHOD 04/18/2025 1:32 AM EDT [facility] Glucose, Urine Negative Negative mg/dL LAB URINALYSIS - AUTOMATED METHOD 04/18/2025 1:32 AM EDT [facility] Ketones, Urine Negative Negative mg/dL LAB URINALYSIS - AUTOMATED METHOD 04/18/2025 1:32 AM EDT [facility] Blood, Urine Negative Negative LAB URINALYSIS - AUTOMATED METHOD 04/18/2025 1:32 AM EDT [facility] Bilirubin, Urine Negative Negative LAB URINALYSIS - AUTOMATED METHOD 04/18/2025 1:32 AM EDT [facility] Urobilinogen, Urine 1.0 0.2 to 1.0 mg/dL LAB URINALYSIS - AUTOMATED METHOD 04/18/2025 1:32 AM EDT [facility] Leukocytes, Urine Negative Negative LAB URINALYSIS - AUTOMATED METHOD 04/18/2025 1:32 AM EDT [facility] Nitrite, Urine Negative Negative LAB URINALYSIS - AUTOMATED METHOD 04/18/2025 1:32 AM EDT [facility] Urine Urine specimen obtained by clean catch procedure / Unknown Non-blood Collection / Unknown 04/18/2025 1:15 AM EDT 04/18/2025 1:28 AM EDT us Hardeep Hicks MD LAB URINE ORDERABLES Final Resu lt [facility] [address] [place] [address] * (ABNORMAL) CBC w/diff (04/18/2025 1:10 AM EDT) WBC Count 12.09(H) 3.70 - 10.30 10*3/uL LAB HEMATOLOGY METHOD 04/18/2025 1:33 AM EDT [facility] RBC Count 3.86(L) 3.90 - 5.20 10*6/uL LAB HEMATOLOGY METHOD 04/18/2025 1:33 AM EDT [facility] HGB 11.9 11.2 - 15.7 g/dL LAB HEMATOLOGY METHOD 04/18/2025 1:33 AM EDT [facility] HCT 35.6 34.0 - 45.0 % LAB HEMATOLOGY METHOD 04/18/2025 1:33 AM EDT [facility] Platelet Count 307 155 - 369 10*3/uL LAB HEMATOLOGY METHOD 04/18/2025 1:33 AM EDT [facility] MCV 92 79 - 98 fL LAB HEMATOLOGY METHOD 04/18/2025 1:33 AM EDT [facility] MCH 30.8 26.0 - 32.0 pg LAB HEMATOLOGY METHOD 04/18/2025 1:33 AM EDT [facility] MCHC 33.4 30.7 - 35.5 g/dL LAB HEMATOLOGY METHOD 04/18/2025 1:33 AM EDT [facility] RDW 12.2 11.5 - 14.5 % LAB HEMATOLOGY METHOD 04/18/2025 1:33 AM EDT [facility] MPV 9.7 8.8 - 12.5 fL LAB HEMATOLOGY METHOD 04/18/2025 1:33 AM EDT [facility] nRBC 0.0 <=0.0 per 100 WBCs LAB HEMATOLOGY METHOD 04/18/2025 1:33 AM EDT [facility] Differential Type Automated LAB HEMATOLOGY METHOD 04/18/2025 1:33 AM EDT [facility] Neutrophils % 65 % LAB HEMATOLOGY METHOD 04/18/2025 1:33 AM EDT [facility] Lymphocytes % 28 % LAB HEMATOLOGY METHOD 04/18/2025 1:33 AM EDT [facility] Monocytes % 5 % LAB HEMATOLOGY METHOD 04/18/2025 1:33 AM EDT [facility] Eosinophils % 2 % LAB HEMATOLOGY METHOD 04/18/2025 1:33 AM EDT [facility] Basophils % 0 % LAB HEMATOLOGY METHOD 04/18/2025 1:33 AM EDT [facility] Immature Granulocytes % 0 % LAB HEMATOLOGY METHOD 04/18/2025 1:33 AM EDT [facility] Neutrophils Absolute 7.79(H) 1.60 - 6.10 10*3/uL LAB HEMATOLOGY METHOD 04/18/2025 1:33 AM EDT [facility] Lymphocytes Absolute 3.40 1.20 - 3.90 10*3/uL LAB HEMATOLOGY METHOD 04/18/2025 1:33 AM EDT [facility] Monocytes Absolute 0.57 0.30 - 0.90 10*3/uL LAB HEMATOLOGY METHOD 04/18/2025 1:33 AM EDT [facility] Eosinophils Absolute 0.25 0.00 - 0.50 10*3/uL LAB HEMATOLOGY METHOD 04/18/2025 1:33 AM EDT [facility] Basophils Absolute 0.04 0.00 - 0.10 10*3/uL LAB HEMATOLOGY METHOD 04/18/2025 1:33 AM EDT [facility] Immature Granulocytes Absolute 0.04 0.00 - 0.06 10*3/uL LAB HEMATOLOGY METHOD 04/18/2025 1:33 AM EDT [facility] Blood Venous blood specimen / Unknown Venipuncture / Unknown 04/18/2025 1:10 AM EDT 04/18/2025 1:30 AM EDT [facility] - 04/18/2025 1:33 AM EDT Therapeutic decision making should be based on absolute values, rather than percentages. us Hardeep Hicks MD LAB BLOOD ORDERABLES Final Resu lt Performing Organization Address City/[facility]/ZIP Co de Phone Number [facility] [address] [place] [address] * Type and screen (04/18/2025 1:10 AM [...] TEST ORDERABLES Final Result Performing Organization Address [facility] de Phone Number BLOOD BANK [address] * hCG qualitative (04/18/2025 1:10 AM EDT) Test Negative Negative 04/18/2025 1:45 AM EDT [facility] Blood Venous blood specimen / Unknown Venipuncture / Unknown 04/18/2025 1:10 AM EDT 04/18/2025 1:16 AM EDT Narrative [facility] - 04/18/2025 1:45 AM EDT Reference Range: Males and non- females: Negative. us Hardeep Hicks MD LAB BLOOD ORDERABLES Final Resu lt Performing Organization Address City/[facility]/ZIP Co de Phone Number [facility] [address] [place] [address] * Lipase (04/18/2025 1:10 AM EDT) Lipase, Plasma 26 19 - 63 U/L 04/18/2025 1:45 AM EDT [facility] Blood Venous blood specimen / Unknown Venipuncture / Unknown 04/18/2025 1:10 AM EDT 04/18/2025 1:16 AM EDT us Hardeep Hicks MD LAB BLOOD ORDERABLES Final Resu lt [facility] [address] [place] [address] * CMP (04/18/2025 1:10 AM EDT) Glucose, Plasma 94 74 - 99 mg/dL 04/18/2025 1:45 AM EDT [facility] BUN, Plasma 13 7 - 21 mg/dL 04/18/2025 1:45 AM EDT [facility] Creatinine, Plasma 0.66 0.60 - 1.10 mg/dL 04/18/2025 1:45 AM EDT [facility] BUN/Creatinine Ratio 20 04/18/2025 1:45 AM EDT [facility] Sodium, Plasma 140 136 - 145 mmol/L 04/18/2025 1:45 AM EDT [facility] Potassium, Plasma 4.4 3.6 - 4.9 mmol/L 04/18/2025 1:45 AM EDT [facility] Chloride, Plasma 102 97 - 107 mmol/L 04/18/2025 1:45 AM EDT [facility] CO2, Plasma 28 22 - 29 mmol/L 04/18/2025 1:45 AM EDT [facility] Anion Gap 10 6 - 16 mmol/L 04/18/2025 1:45 AM EDT [facility] Total Calcium, Plasma 9.2 8.9 - 10.2 mg/dL 04/18/2025 1:45 AM EDT [facility] Total Protein 6.7 6.3 - 7.9 g/dL 04/18/2025 1:45 AM EDT [facility] Albumin, Plasma 4.3 3.5 - 5.2 g/dL 04/18/2025 1:45 AM EDT [facility] AST, Plasma 13 10 - 35 U/L 04/18/2025 1:45 AM EDT [facility] ALT, Plasma 12 10 - 35 U/L 04/18/2025 1:45 AM EDT [facility] Alkaline Phosphatase, Plasma 76 35 - 104 U/L 04/18/2025 1:45 AM EDT [facility] Total Bilirubin, Plasma 0.2 0.2 - 1.1 mg/dL 04/18/2025 1:45 AM EDT [facility] eGFRcr 114.6 mL/min/1.7 3m*2 04/18/2025 1:45 AM EDT [facility] Comment:Reported eGFRcr in m L/min/1.73m2 is based the CKD-EPI 2020 equation that does not use a race coefficient. Blood Venous blood specimen / Unknown Venipuncture / Unknown 04/18/2025 1:10 AM EDT 04/18/2025 1:16 AM EDT us Hardeep Hicks MD LAB BLOOD ORDERABLES Final Resu lt [facility] [address] [place] [address] from Last 3 Months Insurance [facility] MED[facility] [address] [id number] Care Teams Armed Security Professional Relationship Specialty Start Date End Date Brittany Morales APRN [address] [place] [address] PCP - General 04/17/25
--- OUTSIDE RECORDS SUMMARY | 2025-07-03 02:09 | XMS_ITS | Data Portability ---
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 Hickey is a 36-year-old female. The patient is here for the office visit follow-up and for medication refill. She does have multiple chronic pain complaints. She has pain affecting the posterior cervical spine region with symptoms radiating into the left shoulder and left upper extremity to the digits with numbness and tingling affecting affecting most of the left upper extremity and all left digits. Per the patient, with driving, she is getting numbness affecting the entire left hand and all digits. She also has pain which can affect the lumbar spine bilaterally. The patient also reports pain in both legs related to venous insufficiency. The patient reports no change in the nature of these chronic pain complaints compared to last visit. She did get the x-rays of the cervical and lumbar spine regions as ordered last visit. She continues to do the home exercise program daily but this is not helping the neck or the low back pain complaints. She is using CBD oil on a as needed basis. She reports no issue with the tramadol. No general health changes reported today. The patient has history of venous insufficiency. She previously had the greater saphenous vein removed in both legs. For her neck pain, she did physical therapy for her neck in April and May 2021 which did not help. She has tried massage therapy for the neck pain in the past, but this did not help. For the low back pain, she was given a structured home exercise program on January 23, 2022. She is doing those exercises daily. X-rays cervical spine dated April 14, 2022 noted no acute bony abnormality. No instability on flexion or extension. X-rays of the lumbar spine dated April 14, 2022 noted minimal spondylolisthesis of L4 on L5 which is reduced with flexion. There is moderate disc space narrowing at L4-5 level. MRI cervical spine without contrast dated March 06, 2021 noted mild right-sided foraminal narrowing from uncovertebral hypertrophy at C3-4 level, mild degenerative disc disease with mild disc bulging at C5-6 level, and minimal disc bulge with mild left foraminal narrowing from uncovertebral hypertrophy at C6-7 level. Cervical x-rays performed January 16, 2021 noted loss of normal cervical lordosis. Degenerative disc disease at C3-4 level with foraminal narrowing on the right at C3-4 and C4-5 levels. For her chronic pain, she is prescribed tramadol which she tolerates. The updated Demetrio report is reviewed today and is appropriate. The urine drug screen confirmation report from March 20, 2022 is appropriately positive for tramadol. With a moderate risk assessment level, no UDS is performed today. Based on the patients urine confirmation (LCMS) results, the patient's overall risk level will remain the same. I would consider the patient to be Moderate risk based on these new results. In response to the patient's risk level and urine confirmation I plan to not change the patient's opioid prescription. In the past, she did not get benefit from ibuprofen or meloxicam. She was unable to tolerate gabapentin due to sedation. She did not get benefit from Lyrica. She was unable to tolerate Cymbalta. This patient does have multiple chronic pain complaints. First, the patient has neck pain with symptoms extending primarily into the left upper extremity consistent with cervical radiculopathy. I did review and discussed the results of the cervical x-rays with the patient today. Previously, the physician recommended therapeutic cervical epidural injection for this pain complaint. The insurance denied the request for the therapeutic cervical epidural injection due to no documented physical therapy. For her neck pain, she did physical therapy from April to May of 2021 which did not help. She has also tried massage therapy for the neck pain without benefit. I recommend she return to clinic pending insurance approval with a sanitation truck driver for therapeutic cervical epidural injection interlaminar to the left C7-T1 level under fluoroscopy with the physician. The recommended procedure is discussed with the patient in detail. Her questions are answered. She is provided the patient education handout. The patient is agreeable. I am initiating diclofenac today. I did educate the patient she will need to hold the diclofenac 1 day prior to the epidural injection. She may resume the diclofenac 24 hours following the injection. The patient understands. Next, the patient has chronic low back pain. Today, I did review and discussed the results of the lumbar x-rays. The report does note moderate disc space narrowing at L4-5 level with spondylolisthesis L4 on L5 which reduces in flexion. She has been doing a structured home exercise program for the low back pain since January 23, 2022 without benefit. To further evaluate this pain complaint, I will order MRI lumbar spine without contrast. The patient will need to bring the images to the next office visit. The results will be reviewed by the physician. The physician can determine if injection therapy is indicated versus obtaining a neurosurgical consult. I want her to continue the home exercise program. The patient states right now with work, her family and kids, going to physical therapy is not an option. Thus, she is doing the home exercise program. She is using CBD oil as needed with benefit. In the past, for her neuropathic symptoms, she tried and failed gabapentin, Lyrica, and Cymbalta. I did explain to the patient that topiramate is an antiepileptic use for neuropathic pain symptoms. She has taken this medication in the past without side effect for migraine headaches. After discussing this medication with the patient, she is agreeable to doing a trial to see if it will benefit her neuropathic pain symptoms. I will initiate topiramate 50 mg 1 p.o. twice daily. If she has any problems or side effects, she will stop the medication and contact the office immediately. I also think she would benefit from an NSAID medication. She denies any past medical history for acid reflux or stomach ulcers, and she denies any past medical history for renal insufficiency or renal failure. In the past she has tried and failed ibuprofen and meloxicam. I did explain to the patient after she has been on topiramate for at least 5 days without side effect, I would then like for her to begin diclofenac 75 mg 1 p.o. twice daily with meals. If she has any side effects, specifically any GI side effects, she will stop this medication and contact the office immediately. I will continue the tramadol as prescribed. No side effects are noted today. This medication allows her to perform her activities of daily living. She may continue tramadol 50 mg 1 p.o. 3 times daily. I will reassess her in 30 days. At that time, I will follow-up on how she did with the therapeutic cervical epidural injection. I will review the results of the lumbar MRI. I will also follow-up on the medication changes made today. Her ORT score is 1, but her risk assessment level is moderate based on age. [email or web address] Not available 04/22/2022 13:11:55 05/21/2022 05/21/2022 Ms. Hickey is a 36-year-old female. She presents today for the office visit follow-up and for medication refill. This patient reports multiple chronic pain complaints. She has pain affecting the posterior cervical spine region with symptoms radiating into the left shoulder and left upper extremity to the digits with numbness and tingling affecting affecting most of the left upper extremity and all left digits. Per the patient, with driving, she is getting numbness affecting the entire left hand and all digits. At last visit, therapeutic cervical epidural injection was ordered and approved. Our office attempted to reach the patient to schedule the procedure, but we were unable to reach the patient by phone, and she did not return voicemail. Per the patient, she was out of town on vacation. She also has pain which can affect the lumbar spine bilaterally. For this pain complaint, lumbar MRI was ordered and approved. She was actually scheduled to get this done on April 29, 2022. She did not show for that appointment again, because she was out of town on vacation. As of today, she has not rescheduled an appointment. The patient also reports pain in both legs related to venous insufficiency. At last visit, I initiated topiramate. She states that she could not tolerate this because it felt like it caused pressure in her eyes. She also could not tolerate the diclofenac because it made her too tired. She reports she is performing the home exercise program daily. She is using CBD oil on a as needed basis. She reports no issue with the tramadol. The patient states she did see the primary care physician upon returning home from vacation. She apparently has a staph infection on the left lower leg. She is on oral and topical antibiotics for this. No other general health changes reported today. The patient has history of venous insufficiency. She previously had the greater saphenous vein removed in both legs. For her neck pain, she did physical therapy for her neck in April and May 2021 which did not help. She has tried massage therapy for the neck pain in the past, but this did not help. For the low back pain, she was given a structured home exercise program on January 23, 2022. She is doing those exercises daily. X-rays cervical spine dated April 14, 2022 noted no acute bony abnormality. No instability on flexion or extension. X-rays of the lumbar spine dated April 14, 2022 noted minimal spondylolisthesis of L4 on L5 which is reduced with flexion. There is moderate disc space narrowing at L4-5 level. MRI cervical spine without contrast dated March 06, 2021 noted mild right-sided foraminal narrowing from uncovertebral hypertrophy at C3-4 level, mild degenerative disc disease with mild disc bulging at C5-6 level, and minimal disc bulge with mild left foraminal narrowing from uncovertebral hypertrophy at C6-7 level. Cervical x-rays performed January 16, 2021 noted loss of normal cervical lordosis. Degenerative disc disease at C3-4 level with foraminal narrowing on the right at C3-4 and C4-5 levels. For her chronic pain, she is prescribed tramadol which she tolerates. The updated Demetrio report is reviewed today and is appropriate. The urine drug screen performed in clinic today shows negative for all categories. The results are reviewed and discussed with the patient today. The last dose of tramadol was today. I will send the specimen to the lab to confirm tramadol. In the past, she did not get benefit from ibuprofen or meloxicam. She reported a side effect to diclofenac. She was unable to tolerate gabapentin due to sedation. She did not get benefit from Lyrica. She was unable to tolerate Cymbalta. She reported side effect to topiramate. This patient continues to be symptomatic with multiple chronic pain complaints. For the neck pain complaint, the therapeutic cervical epidural injection interlaminar to the left C7-T1 level under fluoroscopy was ordered and approved. However, our office was unable to reach this patient by phone to schedule. The patient did not return the phone call to the office to schedule. The patient states she was on vacation. According to the chart, the authorization is valid through July 07, 2022. At this time, the patient is on oral and topical antibiotics for a staph infection for the left lower leg. I explained to the patient the injection cannot be performed until the infection has resolved. Then, she has to be off antibiotics for at least 2 weeks before the injection can be scheduled. When those 2 things occur, she may contact the office at her convenience and schedule the injection accordingly. For the low back pain complaint, at last visit, the lumbar MRI was ordered and approved. She was actually scheduled for this on April 29, 2022. She did not show for the appointment because she was on vacation. As of today, she has not rescheduled that MRI appointment. I advised the patient if she wants to move forward with the lumbar MRI, she may contact that facility and reschedule her appointment date. If completed by next visit, I will review the results. She reports she is doing the home exercise program. She is using CBD oil as needed with benefit. I did explain to the patient that we are running out of options as it relates to medication options to manage her chronic pain complaints. In the past, for her neuropathic symptoms, she tried and failed gabapentin, Lyrica, and Cymbalta. She reports she was unable to tolerate topiramate prescribed last visit. She has already tried and failed ibuprofen and meloxicam, and she states she was unable to tolerate diclofenac. I presented the option of a trial of celecoxib. I discussed the medication in detail including potential side effects. She is agreeable to doing a trial. Today I will initiate celecoxib 200 mg 1 p.o. daily. If she has any problems or side effects, she will stop the medication and contact the office immediately. I will continue the tramadol as prescribed. No side effects are noted today. This medication allows her to perform her activities of daily living. The plan is to continue tramadol 50 mg 1 p.o. 3 times daily. I will reassess her in 30 days. At that time, I will see how she did with the celecoxib trial. If the lumbar MRI has been performed, I will follow-up on the results. I will also see if the staph infection has resolved to determine if she may move forward with the therapeutic cervical epidural injection. Her ORT score is 1, but her risk assessment level is moderate based on age. [email or web address] Not available 05/21/2022 09:49:34 06/22/2022 06/22/2022 Ms. Hickey is a 36-year-old female. Within the last 48 hours, the patient developed upper respiratory tract symptoms with fever. She is scheduled to see the primary care provider later today to be assessed. To reduce potential risk for infection exposure to COVID and the flu, her visit is conducted today via telehealth. She is currently at her home in [place], [place]. She continues to report multiple chronic pain complaints. She has pain affecting the posterior cervical spine region with symptoms radiating into the left shoulder and left upper extremity to the digits with numbness and tingling affecting affecting most of the left upper extremity and all left digits. Per the patient, with driving, she is getting numbness affecting the entire left hand and all digits. She was actually scheduled to get therapeutic cervical epidural injection on June 24, 2022, but we will need to postpone that injection due to the current illness. The patient also has a complaint of chronic low back pain. The pain affects the lumbar region bilaterally. At last visit, she reported she did not get her lumbar MRI performed because she was out of town on vacation. As of today, she has not rescheduled that lumbar MRI. The patient states she was unable to tolerate celecoxib due to dizziness and nausea. She also believes the tramadol may be causing diarrhea as a side effect. However, she does acknowledge that she has been on multiple antibiotics over the last couple of months due to infection. She does perform the home exercise program. She will use CBD oil on a as needed basis. No other general health changes reported today. The patient has history of venous insufficiency. She previously had the greater saphenous vein removed in both legs. For her neck pain, she did physical therapy for her neck in April and May 2021 which did not help. She has tried massage therapy for the neck pain in the past, but this did not help. For the low back pain, she was given a structured home exercise program on January 23, 2022. She is doing those exercises daily. X-rays cervical spine dated April 14, 2022 noted no acute bony abnormality. No instability on flexion or extension. X-rays of the lumbar spine dated April 14, 2022 noted minimal spondylolisthesis of L4 on L5 which is reduced with flexion. There is moderate disc space narrowing at L4-5 level. MRI cervical spine without contrast dated March 06, 2021 noted mild right-sided foraminal narrowing from uncovertebral hypertrophy at C3-4 level, mild degenerative disc disease with mild disc bulging at C5-6 level, and minimal disc bulge with mild left foraminal narrowing from uncovertebral hypertrophy at C6-7 level. Cervical x-rays performed January 16, 2021 noted loss of normal cervical lordosis. Degenerative disc disease at C3-4 level with foraminal narrowing on the right at C3-4 and C4-5 levels. For her chronic pain, she is prescribed tramadol. The updated Demetrio report is reviewed today and is appropriate. The urine drug screen confirmation report from May 21, 2022 is appropriately positive for tramadol. I am unable to perform a UDS today. Based on the patients urine confirmation (LCMS) results, the patient's overall risk level will remain the same. I would consider the patient to be Moderate risk based on these new results. In response to the patient's risk level and urine confirmation I plan to not change the patient's opioid prescription. In the past, she did not get benefit from ibuprofen or meloxicam. She reported a side effect to diclofenac. She was unable to tolerate gabapentin due to sedation. She did not get benefit from Lyrica. She was unable to tolerate Cymbalta. She reported side effect to topiramate. She reported side effect to celecoxib. This patient does have multiple chronic pain complaints. Her overall pain level has remained about the same in comparison to last visit. She is actually scheduled to have the therapeutic cervical epidural injection on June 24, 2022. I did advise the patient we will need to postpone that for at least 2 weeks to allow her to recover from this current illness. The patient understands. Next, for the low back pain complaint, she has not rescheduled the lumbar MRI previously ordered. I did remind the patient the authorization for the lumbar MRI is valid through July 07, 2022. I encouraged her to get the MRI rescheduled prior to that date. At last visit, she was trialed on celecoxib. She reports side effect of dizziness and nausea. She stopped the celecoxib, and those symptoms resolved. She also believes tramadol is causing a side effect of diarrhea. However, she acknowledges that she has been on multiple antibiotics over the last few months for various infections. I advised the patient to stop the tramadol. If the diarrhea resolves, then she will know definitively that that is the cause. However, I explained to the patient I do not have any other alternatives to prescribe as the physician has deemed she is not a candidate for opioid medication at this time. I want her to continue the home exercise program. She is using CBD oil as needed with benefit. For now, she may continue tramadol 50 mg 1 p.o. 3 times daily. I will reassess her in 60 days. At that time, I will see if she got the lumbar MRI scheduled and completed. Her ORT score is 1, but her risk assessment level is moderate based on age. Patient is an established patient with their informed consent to treat signed and on file. Patient was visually authenticated based on the photograph in the patient's file. Patient was given choice of telehealth visit or office visit; patient chose telehealth visit due to COVID-19 state of emergency. This visit is being conducted via telehealth in accordance to all applicable laws and regulations. Patient is located in [place], [place], and the treating medical provider is located in [place], [place]. [email or web address] Not available 06/22/2022 09:58:52 10/07/2022 10/07/2022 Ms. Hickey is a 36-year-old male we see for follow-up today. She has multiple pain complaints. She has neck pain with referral to left upper extremity that extends into her hand in a nondermatomal fashion. At 1 point she was set up for a cervical epidural steroid injection but this canceled as she was on antibiotics for an illness. She has not rescheduled. She also has low back pain. She did have an MRI of her lumbar spine scheduled at 1 point but was on vacation and did not reschedule the imaging. For her complaints she has been on multiple [id number] NSAIDs without benefit. She reports having tried meloxicam as well as diclofenac without benefit. We have tried her on Celebrex and reports nausea and some dizziness related to this medication was discontinued. She reports having been on gabapentin and possibly Lyrica in the past that made her too tired to tolerate the medication. We have provided her with tramadol which she reports causes diarrhea. Initially it was thought that this is related to the antibiotics that she was currently on. Appears that this is not the case that she has completed the antibiotics and continues to have the diarrhea. I explained do not have other options for her as far as medication goes. She reports she does not find some mild benefit from the tramadol and would like to continue the medication. She does have vascular surgery with Dr. Lay in the near future. I explained once she is recovered from this I would recommend a cervical epidural steroid injection for her complaints. This is something she would like to consider but does not want commit to at this point. The patient has history of venous insufficiency. She previously had the greater saphenous vein removed in both legs. For her neck pain, she did physical therapy for her neck in April and May 2021 which did not help. She has tried massage therapy for the neck pain in the past, but this did not help. For the low back pain, she was given a structured home exercise program on January 23, 2022. She is doing those exercises daily. X-rays cervical spine dated April 14, 2022 noted no acute bony abnormality. No instability on flexion or extension. X-rays of the lumbar spine dated April 14, 2022 noted minimal spondylolisthesis of L4 on L5 which is reduced with flexion. There is moderate disc space narrowing at L4-5 level. MRI cervical spine without contrast dated March 06, 2021 noted mild right-sided foraminal narrowing from uncovertebral hypertrophy at C3-4 level, mild degenerative disc disease with mild disc bulging at C5-6 level, and minimal disc bulge with mild left foraminal narrowing from uncovertebral hypertrophy at C6-7 level. Cervical x-rays performed January 16, 2021 noted loss of normal cervical lordosis. Degenerative disc disease at C3-4 level with foraminal narrowing on the right at C3-4 and C4-5 levels. For her chronic pain, she is prescribed tramadol. The updated Demetrio report is reviewed today and is appropriate. The urine drug screen confirmation report from May 21, 2022 is appropriately positive for tramadol. No urine drug screen is obtained today 10/07/2022. Based on the patients urine confirmation (LCMS) results, the patient's overall risk level will remain the same. ORT is 1 by self reporting. I would consider the patient to be Moderate risk based on these new results. In response to the patient's risk level and urine confirmation I plan to not change the patient's opioid prescription. In the past, she did not get benefit from ibuprofen or meloxicam. She reported a side effect to diclofenac. She was unable to tolerate gabapentin due to sedation. She did not get benefit from Lyrica. She was unable to tolerate Cymbalta. She reported side effect to topiramate. She reported side effect to celecoxib. Plan: Ms. Hickey is a 36-year-old female with multiple pain generators including neck and low back pain with radicular symptoms in the left upper extremity. She has tried multiple [id number] medications as well as a number of prescription NSAIDs including Mobic diclofenac and more recently Celebrex without benefit or with adverse side effects. She has also tried neuromodulation type medications including gabapentin and Lyrica with adverse side effects. She is not candidate for opiates through this clinic but has been provided tramadol which she has found mildly beneficial but reports that she is having diarrhea related to the medication. She would like to continue the medication which she is 50 mg 3 times daily as needed. I will provide a new prescription today. We will see her back in the office in 60 days for further evaluation treatment planning. She has not rescheduled MRI of her lumbar spine. She has not rescheduled the cervical epidural steroid injection which we discussed today. She does have vascular surgery upcoming and I explained once she is healed from this this may be her best option as we do not have other medication options for her at this time. She appears to understand. No other medications were provided today. [email or web address] Not available 10/07/2022 13:37:26 12/08/2022 12/08/2022 Interval history since last visit: Ms. Hickey is a 37-year-old female. She presents today for the 60-day office visit follow-up and for medication refill. Compared to last visit, she reports her neck pain to be worse. Previously, she was symptomatic with radiating symptoms into the left upper extremity. Now, she is getting the exact same symptoms into the right upper extremity with numbness and tingling affecting all right digits. There is no history for injury or trauma. She states this is affecting her ADLs particularly use of the upper extremities and the activities of daily living. This is affecting her sleep. She reports no issue with the tramadol. She continues to do the structured home exercise program daily since last visit. She uses CBD oil as needed. No general health changes reported today. Pain history: This patient has multiple chronic pain complaints. She has pain affecting the posterior cervical spine region with symptoms radiating into the left shoulder and left upper extremity to the digits with numbness and tingling affecting affecting most of the left upper extremity and all left digits. Per the patient, with driving, she is getting numbness affecting the entire left hand and all digits. She has pain affecting the lumbar region bilaterally. The patient has history of venous insufficiency. She previously had the greater saphenous vein removed in both legs. The patient is currently treating with the vascular surgeon. Since last visit, she had what sounds like balloon angioplasty for both iliac arteries. Per the patient, no stents were placed. The blockage was estimated to be 50%. For her neck pain, she did physical therapy for her neck in April and May 2021 which did not help. She has tried massage therapy for the neck pain in the past, but this did not help. For the low back pain, she was given a structured home exercise program on January 23, 2022. She is doing those exercises daily. X-rays cervical spine dated April 14, 2022 noted no acute bony abnormality. No instability on flexion or extension. X-rays of the lumbar spine dated April 14, 2022 noted minimal spondylolisthesis of L4 on L5 which is reduced with flexion. There is moderate disc space narrowing at L4-5 level. MRI cervical spine without contrast dated March 06, 2021 noted mild right-sided foraminal narrowing from uncovertebral hypertrophy at C3-4 level, mild degenerative disc disease with mild disc bulging at C5-6 level, and minimal disc bulge with mild left foraminal narrowing from uncovertebral hypertrophy at C6-7 level. Cervical x-rays performed January 16, 2021 noted loss of normal cervical lordosis. Degenerative disc disease at C3-4 level with foraminal narrowing on the right at C3-4 and C4-5 levels. For her chronic pain, she is prescribed tramadol. The updated Demetrio report is reviewed today and is appropriate. The urine drug screen confirmation report from October 07, 2022 is negative for tramadol. The last office visit note does not document when she last took tramadol. According to the Demetrio report she filled September 04 which would run through October 04. Therefore, she would have been out 3 days prior to that visit. This is an appropriate result. A urine specimen is collected today for screening and confirmation. The last dose of tramadol was last night at approximately 6 PM. The specimen will be sent for confirmation today. Based on the patients urine confirmation (LCMS) results, the patient's overall risk level will remain the same. I would consider the patient to be Moderate risk based on these new results. In response to the patient's risk level and urine confirmation I plan to not change the patient's opioid prescription. In the past, she did not get benefit from ibuprofen or meloxicam. She reported a side effect to diclofenac. She was unable to tolerate gabapentin due to sedation. She did not get benefit from Lyrica. She was unable to tolerate Cymbalta. She reported side effect to topiramate. She reported side effect to celecoxib. This patient has multiple chronic pain complaints. Previously, for her neck pain complaint, she was symptomatic into the left upper extremity. However, since last visit, she has developed the exact same symptoms into the right upper extremity. There is no history for injury or trauma. She is getting pain from the neck extending into the right upper extremity to the digits with numbness and tingling affecting all right digits. Now, with both arms affected, this is significantly impacting her activities of daily living. This is also affecting her sleep. The last cervical MRI is from February 2021. I recommend getting updated imaging to see if there has been change in pathology to match the new symptomatology. As it relates to conservative treatment measures, she did physical therapy for the neck back in AprilMay 2021 which did not help. She has tried massage therapy in the past which did not help. The patient does a structured home exercise program for her neck pain daily that she learned in physical therapy. The exercises nor the tramadol are managing this pain complaint. My plan is to order MRI cervical spine without contrast. The results will be reviewed next visit. At that time, I will review with the physician to determine if injection therapy is indicated versus obtaining a neurosurgical consult. The patient never did schedule the previously requested lumbar MRI. I want her to continue the current home exercise program as performed on a daily basis. She uses CBD oil. She may continue with the tramadol as prescribed. No issues are reported today. The plan is to continue tramadol 50 mg 1 p.o. 3 times daily. I will reassess her in 60 days. At that time, I will review the updated cervical MRI. Her ORT score is 1, but her risk assessment level is moderate based on age. [email or web address] Not available 12/08/2022 09:27:05 Plan of Treatment Reminders Order Date Submit Date Provider Last Modified By Organization Details Last Modified Time Details Appointments None recorded. Lab drug screen, urine - Qualitative LCMS Screen Panel 2022 023 [facility], [facility], [address] [place] [address], [address], 15:30:03 drug screen, urine 2022 023 [facility], [facility], [address] [place] [address], [address], 3 11:23:46 drug screen, urine [email or web address], [place], [address], 11:56:57 unlisted lab - confirm synthetic opioids [address] [facility], [facility], [address] [place] [address], [address], 15:34:29 Referral None recorded. Procedures epidural steroid injection, cervical interlamina r (PROC) 2021 022 [email or web address] Not available 11:32:07 Surgeries None recorded. Imaging MRI, cervical spine, w/o contrast [address] (Scheduling), [address], [place], [address], 3 08:32:33 MRI, lumbar spine, w/o contrast 2021 022 [facility] (Scheduling), [address], [place], [address], 11:56:45 Medication Orders tramadol 50 mg tablet 2022 023 [email or web address] [facility], [address], [place], [address], 09:55:03 tramadol 50 mg tablet 2022 023 [email or web address] [facility], [address], [place], [address], 16:39:06 tramadol 50 mg tablet 2021 022 [facility], [address], [place], [place], [address], 09:31:45 tramadol 50 mg tablet 2021 022 [facility], [address], [place], [place], [address], 09:47:15 Celebrex 200 mg capsule [address], [address], [place], [place], [address], 09:14:48 tramadol 50 mg tablet 2021 022 [facility], [address], [place], [place], [address], 09:48:47 topiramate 50 mg tablet [address], [address], [place], [place], [address], 09:24:58 diclofenac sodium 75 mg tablet,hanna yed release [address], [address] [facility] [address], [place], [address], 09:24:53 Patient TargetsNo targets recorded. Patient Instructions Encounter Date Encounter Id Patient Instructions Last Modified By Organization Details Last Modified Time 10/07/2022 [id number] high blood pressure: care instructions Not available 10/07/2022 16:39:12 advance directives: care instructions [email or web address] Not available 10/07/2022 16:39:12 depression and chronic disease: care instructions [email or web address] Not available 10/07/2022 16:39:12 safe use of opioid pain medicine: care instructions [place] [address] Not available 10/07/2022 16:39:12 Reason for Referral None Reported. Results Created Date Observation Date Name Description Value Unit Range Abnormal Flag Note LastModifiedBy Organization Detail LastModifiedTime 05/21/2005/21/2022 drug scree n, urine THC: negati ve Not Available [place] [id number], [place], [address], 05/21/2022 09:30:17 05/21/20 22 05/21/2022 drug scree n, urine Buprenorphin e: negati ve Not Available [place] [address], [place], [address], 05/21/2022 09:30:17 05/21/20 22 05/21/2022 drug scree n, urine TCA: negati ve Not Available [place] [address], [place], [address], 05/21/2022 09:30:17 05/21/20 22 05/21/2022 drug scree n, urine Barbiturates : negati ve Not Available [place] [address], [place], [address], 05/21/2022 09:30:17 05/21/20 22 05/21/2022 drug scree n, urine Benzodiazepi niko: negati ve Not Available [place] [address], [place], [address], 05/21/2022 09:30:17 05/21/20 22 05/21/2022 drug scree n, urine Methadone: negati ve Not Available [place] [address], [place], [address], 05/21/2022 09:30:17 05/21/20 22 05/21/2022 drug scree n, urine Amphetamines : negati ve Not Available [place] [address], [place], [address], 05/21/2022 09:30:17 05/21/2005/21/2022 drug scree n, urine Morphine/Opi ates: negati ve Not Available [place] [address], [place], [address], 05/21/2022 09:30:17 05/21/20 22 05/21/2022 drug scree n, urine Oxycodone: negati ve Not Available [place] [address], [place], [address], 05/21/2022 09:30:17 05/21/20 22 05/21/2022 drug scree n, urine MDMA: negati ve Not Available [place] [address], [place], [address], 05/21/2022 09:30:17 05/21/2005/21/2022 drug scree n, urine Cocaine: negati ve Not Available [place] [address], [place], [address], 05/21/2022 09:30:17 05/21/2005/21/2022 drug scree n, urine Methamphetam ine: negati ve Not Available [place] [address], [place], [address], 05/21/2022 09:30:17 04/14/20 22 04/14/2022 XR, lumbo sacra l spine , 4 or more view No observ ation record ed. [email or web address] [facility] [address], [place], [address], 04/22/2022 13:11:06 Result Notes None recorded. Problems Name Problem SNOMED Code Status Onset Date Resolution Date Notes Provider Name and Address Organization Details Recorded Time Cervical radiculopa thy 08521152 Active 2020 MARY Pendleton [address] [place] [address], [address] , [facility] 2 10:30:06 Long-term drug therapy Active 2021 MARY Pendleton [address] [place] [address], [address] , [facility] 2 10:31:44 Degenerati on of lumbar interverte bral disc 67338593 Active 2021 MARY Pendleton [address] [place] [address], [address] , [facility] 2 10:01:55 Lumbar spondyloli sthesis 5840267781416 02 Active 2021 MARY Pendleton [address] [place] [address], [address] , [facility] 2 10:01:56 Overweight 526734572 Active 2022 mary krueger [facility] 3 07:20:00 Problem Notes None recorded. Procedures Surgical History Date Name Laterality Status Provider Name and Address Organization Details Recorded Time 05/02/20 Cervical Epidural Steroid Injection: Interlaminar cancelled Felicia Dennis [facility] 04/28/2021 15:07:01 Breast Surgery completed Velma Zhang [facility] 02/12/2021 11:41:04 procedure on vein completed Bonnie Kirk [facility] 06/22/2022 09:16:19 Imaging Results None recorded. Procedure Notes None recorded. Medical Equipment None Reported. Allergies Allergen ID Allergen Name Allergen Category Reaction Reaction Severity Criticality Documentation Date Start Date Code Code System Note Provider Name and Address Organization Details Recorded Time 732205 codeine medicatio n itching rash respirato ry distress Not available Not available Not available Not available 02/12/2021 2670 RxNorm Velma [facility] 1 11:41:03 [id number] gabapenti n medicatio n Not available Not available Not available 02/26/2021 83327 RxNorm Rafia Kuhn [facility] 1 13:18:38 917217 Topamax medicatio n Not available Not available Not available 05/21/2022 57971 3 RxNorm eye press ure Bonnie Kirk [facility] 2 09:25:16 524698 diclofena c Not available Not available Not available Not available 05/21/2022 3355 RxNorm tired Bonnie Kirk [facility] 2 09:25:25 [id number] Celebrex medicatio n dizziness nausea Not available Not available Not available 06/22/2022 90285 7 RxNorm Bonnie Kirk [facility] 2 09:15:12 Medications Name Sig Start Date Stop Date Status Note LastModified by Organization Details LastModified Time RX Alternative Neuropathic Pain Cream apply to area 3 times a day as needed 04/22 completed Not Available Not Available Not Available amantadine HCl 100 mg tablet active Not Available Not Available Not Available losartan 50 mg tablet Take 1 tablet every day by oral route. 12/08 completed Not Available Not Available Not Available celecoxib 200 mg capsule Take 1 capsule every day by oral route as directed for 30 days. 06/22 completed Not Available Not Available Not Available methocarbam ol 500 mg tablet Take 1 tablet 3 times a day by oral route as needed for 30 days. 02/26 completed Not Available Not Available Not Available cetirizine 10 mg tablet Take by oral route. active Not Available Not Available No t Available azithromyci n 250 mg tablet 01/15 completed Not Available Not Available Not Available hydrocodone 5 mg-acetamin ophen 325 mg tablet TAKE 1 TABLET BY MOUTH EVERY 6 HOURS FOR 3 DAYS NEEDED FOR PAIN 01/15 completed Not Available Not Available Not Available prednisone 20 mg tablet active Not Available Not Available Not Available sulfamethox azole 800 mg-trimetho prim 160 mg tablet 06/22 completed Not Available Not Available Not Available doxycycline monohydrate 100 mg tablet TAKE 1 TABLET BY MOUTH TWICE DAILY FOR 7 DAYS 03/20 completed Not Available Not Available Not Available tramadol 50 mg tablet Take 1 tablet 3 times a day by oral route as needed for 30 days. active Not Available Not Available No t Available prednisone 10 mg tablets in a dose pack 01/15 completed Not Available Not Available Not Available diclofenac sodium 75 mg tablet,hanna yed release Take 1 tablet twice a day by oral route with meals for 30 days. 05/21 completed Not Available Not Available Not Available mupirocin 2 % topical ointment APPLY OINTMENT TOPICALLY TO LESIONS 3 TIMES A DAY FOR 10 DAYS 06/22 completed Not Available Not Available Not Available gabapentin 100 mg capsule 02/26 completed Not Available Not Available Not Available methylpredn isolone 4 mg tablets in a dose pack Take 1 dose pk every day by oral route as directed for 6 days. 03/20 completed Not Available Not Available Not Available losartan 100 mg tablet Take 1 tablet every day by oral route as directed for 30 days. active Not Available Not Available No t Available clotrimazol e 1 % topical cream Apply by topical route. 06/22 completed Not Available Not Available Not Available topiramate 50 mg tablet Take 1 tablet twice a day by oral route as directed for 30 days. 05/21 completed Not Available Not Available Not Available duloxetine 30 mg capsule,del ayed release Take 1 capsule every day by oral route for 30 days. 02/24 completed Not Available Not Available Not Available tizanidine 2 mg capsule Take 1 capsule twice a day by oral route. 02/26 completed Not Available Not Available Not Available pregabalin 75 mg capsule Take 1 capsule twice a day by oral route for 30 days. 02/26 completed Not Available Not Available Not Available ProAir HFA 90 mcg/actuati on aerosol inhaler 01/15 completed Not Available Not Available Not Available Lidocaine Pain Relief 4 % topical patch 01/23 completed Not Available Not Available Not Available Vitals Date Recorded Body height Oxygen saturation Heart rate Body mass index (BMI) Body weight Pain severity - 0-10 verbal numeric rating [Score] - Reported Systolic And Diastolic Provider Name and Address Organization Details Last Updated DateTime 3 160.02 cm 99 % 98 /min 27.1 kg/m2 87262.6 3 g 7 138/78 mm[Hg] mary medranos [facility] 3 13:07:58 Date Recorded Body height Body mass index (BMI) Body weight Pain severity - 0-10 verbal numeric rating [Score] - Reported Provider Name and Address Organization Details Last Updated DateTime 12/08/2022 160.02 cm 31.4 kg/m2 01404.85 g 6 Yina Isidra [facility] 12/08/2022 09:04:19 Date Recorded Body height Body mass index (BMI) Body weight Heart rate Oxygen saturation Pain severity - 0-10 verbal numeric rating [Score] - Reported Systolic And Diastolic Provider Name and Address Organization Details Last Updated DateTime 2 160.02 cm 29.5 kg/m2 96988.2 1 g 88 /min 99 % 5 144/99 mm[Hg] Bonnie Kirk [facility] 2 09:15:38 Date Recorded Body height Body mass index (BMI) Body weight Heart rate Oxygen saturation Pain severity - 0-10 verbal numeric rating [Score] - Reported Systolic And Diastolic Provider Name and Address Organization Details Last Updated DateTime 2 160.02 cm 29.8 kg/m2 23207.2 4 g 90 /min 99 % 7 145/96 mm[Hg] Bonnie Kirk [facility] 2 09:22:37 Date Recorded Body height Pain severity - 0-10 verbal numeric rating [Score] - Reported Provider Name and Address Organization Details Last Updated DateTime 06/22/2022 160.02 cm 5 Bonnie Kirk [facility] 06/22/2022 09:13:30 Social History Question Answer Notes LastModified by Organizat ion Details LastModified Time Tobacco Smoking Status Current Some Day Smoker Velma krueger [facility] 02/12/2021 11:41:04 Do You Have An Advance Directive? No Information not available 03/20/2022 Are You Blind Or Do You Have Difficulty Seeing? No [email or web address] Information not available 02/12/2021 What Is Your Level Of Caffeine Consumption? Occasional Information not available 02/12/2021 In The 14 Days Before Symptom Onset, Have You Had Close Contact With A Laboratory-confir med COVID-19 While That Case Was Ill? No Information not available 02/26/2021 In The 14 Days Before Symptom Onset, Have You Had Close Contact With A Person Who Is Under Investigation For COVID-19 While That Person Was Ill? No Information not available 02/26/2021 Have You Been To An Area Known To Be High Risk For COVID-19? No Information not available 02/26/2021 Are You Deaf Or Do You Have Serious Difficulty Hearing? No [email or web address] Information not available 02/12/2021 What Type Of Diet Are You Following? REGULAR [email or web address] Information not available 02/12/2021 Have You Processed Blood Or Body Fluids From An Ebola Virus Disease Patient Without Appropriate PPE? No Information not available 02/26/2021 Do You Reside In Or Have You Traveled To An Area Where Ebola Virus Transmission Is Active? No Information not available 02/26/2021 What Is The Highest Grade Or Level Of School You Have Completed Or The Highest Degree You Have Received? [id number] [email or web address] Information not available 03/20/2022 How Many Times Per Week Do You Exercise? 1-2 Times Per Week [email or web address] Information not available 10/07/2022 Which Of Your Hands Is Dominant? Right Information not available 02/26/2021 What Was The Date Of Your Most Recent Tobacco Screening? 10/07/2022 [email or web address] Information not available 10/07/2022 What Is Your Relationship Status? Information not available 02/12/2021 Are You Sexually Active? Yes Information not available 02/26/2021 At What Age Did You Start Smoking Tobacco? 25 Information not available 02/12/2021 How Much Tobacco Do You Smoke? 0.25 PPD [email or web address] Information not available 02/12/2021 How Many Years Have You Smoked Tobacco? 10 [email or web address] Information not available 02/12/2021 Do You Have Difficulty Walking Or Climbing Stairs? Yes [email or web address] Information not available 02/12/2021 Sex: Female Functional Status Question Answer Note LastModified by Organizat ion Details LastModified Time How many times per week do you consume alcohol? Less than 1 time per week [email or web address] Information not available 10/07/2022 Do you use any illicit or recreational drugs? No [email or web address] Information not available 10/07/2022 What is your level of alcohol consumption? Occasional [email or web address] Information not available 02/12/2021 Are you currently employed? Yes Information not available 02/13/2022 Are you able to walk independently without assistance or assistive devices? YESWOREST [email or web address] Information not available 02/12/2021 Do you have difficulty doing errands alone? 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 No [email or web address] Information not available 02/12/2021 What is your exercise level? Occasional Information not available 02/26/2021 Mental Status Question Answer Note LastModified by Organizat ion Details LastModified Time Do you feel stressed (tense, restless, nervous, or anxious, or unable to sleep at night)? [id number] [email or web address] Information not available 02/12/2021 Do you have difficulty concentrating, remembering or making decisions? No [email or web address] Information no t available 02/12/2021 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 Relationship Description Onset Age of this Age Resolved Age Notes LastModified by Organization Details LastModified Time Maternal Grandmother Rheumatoid arthritis [email or web address] Not available 2020 11:41:03 Mother Rheumatoid arthritis [email or web address] Not available 2020 11:41:03 Father Rheumatoid arthritis Not available 2020 11:41:03 Maternal Grandfather Rheumatoid arthritis [email or web address] Not available 2020 11:41:03 Medical History Condition Response Bipolar Disease N Coronary Artery Disease N Seizure Disorder N Gout N Atrial Fibrillation N Thyroid Disease N Hernia N Head Trauma/Injury Y COPD N Depression N Anxiety Disorder N Acid Reflux (GERD) N Cancer N Stroke N Skin Disorder N High Cholesterol N Liver Disease N Rheumatoid Arthritis N Headaches Y Fibromyalgia N Kidney Disease N Autoimmune Disease N Osteoarthritis N Neurosurgery N DVT N Peptic Ulcer Disease N Anemia N Heart Attack ([place]) N Diabetes N Cardiomyopathy N Bleeding Disorder N CHF N AIDS/HIV N Inflammatory Bowel Disease N Dementia N Asthma N Substance Abuse N Sleep Apnea N Hepatitis N Heart Disease N Pulmonary Embolism N Chronic Low Back Pain N Hypertension N Osteoporosis N Gynecological HistoryNo gynecological history recorded. Obstetrics History GPAL:G 0 P 0 0 0 0 Past Encounters Encounter ID Performer Location Encounter Start Date Encounter Closed Date Diagnosis/Indication Diagnosis SNOMED-CT Code Diagnosis ICD10 Code Diagnosis IMO Codes Diagnosis Note [id number] WILLA FARAH MD [place] [address] [facility] [address] ,[facility] [address] [place] [address] 02/12/2021 11:10:04 02/12/2021 12:33:12 Degeneration of cervical intervertebral disc 44606222 M50.30 Cervical radiculopathy 39030789 M54.12 Long-term drug therapy 047784934 Z79.899 The urine sample is being sent for quantitati ve LCMS analysis of illicit drugs (Cocaine, Methamphet amine, Heroin, Fentanyl, THC, Synthetic Cannabinoi ds, Kratom, MDMA, PCP, and Synthetic Stimulants , Opiates (Codeine, Hydrocodon e, Hydromorph one, and Morphine), Oxycodone, Oxymorphon e, Methadone, Synthetic Opioids (Tramadol, Tapentadol , and Buprenorph ine), Benzodiaze pines (Alprazola m, Clonazepam , Lorazepam, Diazepam, Nordazepam , Oxazepam, and Temazepam) , Gabapentin , Pregabalin , Muscle Relaxants (Carisopro dol, Cyclobenza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
[2025-07-03 02:10] VITALS: BP 125/107; PULSE 113; RESP 18; TEMP 37; O2SAT 98; BMI 25.7
[2025-07-03] MEDS: COCAINE 4% TOPICAL SOLN 4ML BOTTLE 1 ML TP (03:41)
[2025-07-03] MEDS: LIDOCAINE 2% UROJET 10ML TP (03:42)
[2025-07-03] MEDS: IBUPROFEN 600 MG TABLET PO (03:45)
[2025-07-03] MEDS: TET/DIPHTH/PERT-ADULT 0.5ML SYRINGE 0.5 ML IM (03:46)
--- NOTE | 2025-07-03 04:19 | ED_ITS ---
Discharge Plan Disposition Patient Disposition: Home, Self-Care Condition: Good Prescriptions Prescriptions: No Action multivitamin Tablet 1 tab PO DAILY mecobalamin (vitamin B12) 1,000 mcg tablet,disintegrating 1,000 mcg sublingual DAILY Rx Instructions: place tablet under tongue and allow to dissolve for at least30 secs before swallowing meloxicam 7.5 mg tablet 7.5 mg PO DAILY Qty: 30 2RF diclofenac sodium [Voltaren Arthritis Pain] 1 % gel 4 g topical QID PRN (Reason: pain) 30 Days Qty: 100 2RF Rx Instructions: apply to heel; ankle, foot; for foot includes sole/toes/top of foot losartan 100 mg tablet See Rx Instructions .ROUTE .COMPLEX Qty: 90 1RF Dose Instruction: TAKE 1 TABLET BY MOUTH ONCE DAILY Rx Instructions: TAKE 1 TABLET BY MOUTH ONCE DAILY albuterol sulfate 90 mcg/actuation HFA aerosol inhaler 3 inh inhalation Q3H PRN (Reason: shortness of breath or wheezing) Qty: 6.7 0RF Referrals Follow up/Referrals: Brittany Morales APRN [Primary Care Provider, Medical] - See instructions Activity Restrictions/Add. Instructions Additional Instructions/Restrictions: You were evaluated in the ER and are believed to be appropriate for discharge at this time. Take Tylenol ibuprofen at home if needed for pain, do not exceed the recommended dose on the bottle. Drink water and eat a small snack each time you take these medications to avoid side effects. Keep the wound clean and dry. You can shower/bathe like normal. Apply Band-Aid over the wound to protect it. Use the provided aluminum foam splint if needed to also protect the end of the finger. Do not use any ointment on the wound until after the glue has fallen off. It should fall off in approximately 4 to 6 days. Follow-up with your primary care doctor for reevaluation in a few days. Return to the ER with any new, worsening, or otherwise concerning symptoms including but not limited to signs of infection as discussed. Clinical Impressions Clinical Impression: Laceration of left index finger Instructions Patient Instructions: DI for Laceration Repair Print Language Print Language: Uzbek Discharge ED Provider: Julia Hoang Adult [facility] General Chief complaint: Wound/Laceration Stated complaint: L Index finger; AO cut with knife Time Seen by Provider: 07/03/25 03:05 Mode of Arrival: Ambulatory Source of Information: Patient Description of Symptoms (Recalled from ER Triage Doc. 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 Reports she was using a serrated kitchen knife to open a cheese package when the knife went thru, cutting her finger. History of Present Illness HPI narrative: 39-year-old female presents to the ER with laceration to the left index finger approximately 1-2 hours prior to arrival. She was reportedly using a clean serrated kitchen knife attempting to open a cheese package when it slipped through cutting the pad of her left index finger. She states she had it wrapped but when it started to bleed again she came to the ER for further evaluation unsure if she needs stitches. She states it hurts severely but she has no numbness, full range of motion. Bleeding is controlled. No involvement of the nail. Unknown last tetanus. Patient states she did not take any medications prior to arrival. Related Data Home Medications ?Medication ?Instructions ?Recorded ?Confirmed mecobalamin (vitamin B12) 1,000 1,000 mcg sublingual D AILY 04/20/23 06/14/25 mcg disintegrating tablet,sublingual multivitamin 1 tab PO DAILY 04/20/2305/27 Previous Rx's ?Medication ?Instructions ?Recorded losartan 100 mg tablet See Rx Instructions .Route 0 08/04/24 .COMPLEX #90 tabs albuterol sulfate 90 mcg/actuation 3 inh inhalation Q3 H PRN shortness 12/18/24 aerosol inhaler of breath or wheezing #6.7 g mira diclofenac sodium 1 % topical gel 4 g topical QID PRN pain 30 days 06/14/25 (Voltaren Arthritis Pain) #100 grams meloxicam 7.5 mg tablet 7.5 mg PO DAILY pain #30 tab s 06/14/25 Allergies Allergy/AdvReac Type Severity Reaction Status Date / Time codeine (CODEINE) Allergy Unknown Hives Verified 06/14/25 14:54 [facility] Disclaimer: The information contained in this section may have been updated after the patient was seen, as this information can be updated by other users. Medical History (Updated 07/03/25 @ 04:39 by Julia Hoang MD) Right foot pain Varicose veins of both lower extremities Venous insufficiency of both lower extremities Circulation disorder of lower extremity Degeneration of lumbar intervertebral disc Spondylolisthesis, lumbar region Cervical radiculopathy Surgical History Status post phlebectomy 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 Father Heart attack Hypertension Mother Hypertension Grandfather Hypertension Grandmother Hypertension Social History Smoking Status: Current every day smoker tobacco type: cigarettes packs per day: 1 alcohol intake: current alcohol intake frequency: holidays/special occasions only substance use type: denies use current occupational status: employed Travel in the last 8 weeks?: None Have you lived/traveled outside [place] in past 30 days?: No Contact w/someone who lives/traveled outside US past 30 days?: No Exposure to someone with infectious disease in past 14 days?: No Do you have a fever (greater than 100.4 F or 38 C)?: No Have you tested positive for COVID-19?: No Exposed to someone with COVID-19 in past 14 days?: No Do you have a sore throat?: No Do you have a cough?: No Do you have any weakness?: No Do you have any diarrhea?: No Are you experiencing any unusual bleeding?: No Do you have any muscle aches/pain?: No Do you have any abdominal pain?: No Are you experiencing loss of taste or smell?: No Other Medical History Have you received the Flu Vaccine for this season: No Have you received the Pneumonia Vaccine: Yes ROS Obtained: Yes Systems reviewed as appropriate & no additional complaints except as documented per HPI Physical Exam General General appearance: alert, in no apparent distress and anxious Head Head exam: atraumatic and normocephalic Eye Eye exam: Present PERRL and EOMI ENT ENT exam: Present mucous membranes moist Neck Neck exam: Present normal inspection and full ROM Chest Chest inspection: Present symmetric chest wall rise Respiratory Respiratory exam: Absent respiratory distress or stridor Cardiovascular Cardiovascular exam: Present regular rate and normal rhythm Extremities Exam Extremities exam: Present full ROM and other (1 cm slightly curved laceration on the palmar aspect of the distal phalanx of the left index finger, not gaping, hemostatic, neurovascularly intact, full range of motion, no involvement of the nail or nailbed) Neurological Exam Neurological exam: Present alert and oriented X3; Absent motor sensory deficit Psychiatric Psychiatric exam: Present normal affect, normal mood and anxious Skin Skin exam: Present warm and dry Medical Decision Making Medical Records Medical records reviewed: Yes I reviewed the patient's medical records. Screening: Per USPSTF and CDC recommendations, given the prevalence of disease in our region, it is our hospital?s policy to screen for HIV and viral Hepatitis for all patients aged 18 and over and those with ongoing risk factors. Demetrio Inquiry Pt receiving controlled substance: No Vital Signs: 07/03/25 02:10 07/03/25 04:39 Temperature 98.6 F 98.1 F Temperature Source Oral Oral Pulse Rate 82 Pulse Rate [Right Radial] 113 H Respiratory Rate 18 18 Blood Pressure 157/87 H Blood Pressure [Right Arm] 125/107 H Blood Pressure Mean [Right Arm] 113 Blood Pressure Source Automatic Cuff Blood Pressure Source [Right Arm] Automatic Cuff Blood Pressure Position Sitting Blood Pressure Position [Right Arm] Sitting 02 Sat by Pulse Oximetry 98 Oxygen Delivery Method Room Air Room Air Orders (Tests/Meds): ED MEDICATIONS Discontinued Medications Generic Name Dose Route Start Last Admin Trade Name Sanket PRN Reason Stop Dose Admin Acetaminophen 1,000 mg 07/03/25 03:15 07/03/25 03:57 Acetaminophen 500mg Tab PO 07/03/25 03:16 Not Given ONCE ONE Cocaine HCl 1 ml 07/03/25 03:15 07/03/25 03:41 Cocaine 4% Topical Soln 4ml Bottle TP 07/03/25 03:16 1 ml ONCE ONE Administration Epinephrine HCl 1 mg 07/03/25 03:15 07/03/25 03:41 Epinephrine 1 Mg/Ml Vial TP 07/03/25 03:16 1 mg ONCE ONE Administration Ibuprofen 600 mg 07/03/25 03:15 07/03/25 03:45 Ibuprofen 600 Mg Tablet PO 07/03/25 03:16 600 mg ONCE ONE Administration Lidocaine HCl 1 ml 07/03/25 03:15 07/03/25 03:42 Lidocaine 2% Urojet 10ml TP 07/03/25 03:16 1 ml ONCE ONE Administration Tetanus/Reduced Diphtheria/Acell Pertussis 0.5 ml 07/03/25 03:15 07/03/25 03:46 Tet/Diphth/Pert-Adult 0.5ml Syringe IM 07/03/25 03:16 0.5 ml .ONCE ONE Administration Medical Decision Narrative: In summary, 39-year-old female presents to the ER with complaints of laceration to the left index finger. She has a history of hypertension, no history of diabetes. On initial evaluation patient is hemodynamically stable, afebrile, she is anxious about the wound and becomes increasingly anxious when talking about the pain in it but overall she is well-appearing, physical exam is only notable for 1 cm laceration on the left index finger as described in the physical exam. It is hemostatic, full range of motion, neurovascularly intact. I do not believe imaging is indicated. Tdap administered as booster. Tylenol and ibuprofen were offered to the patient but she stated these will not work, I would need something more . I explained to her that topical numbing medication would be applied but I would not be giving stronger pain medications than Tylenol and ibuprofen because this is a simple laceration, not an amputation, fracture, or other more severe injury. She was rude to myself and staff about her pain and us reportedly not understanding how severe it is. On exam there i s no gaping of the wound, deep structures are intact, did not have evidence for any severe injury beyond the mild laceration. Topical lidocaine/epinephrine/cocaine was applied to the wound. It was cleaned. Pain was improved after the topical ointment but still not resolved according to the patient. She let me examine it further and again there is no evidence of deeper injury. She reports a stinging sensation in the wound and I did consider the possibility of nerve involvement, however she has distal sensation and full range of motion so I do not have high suspicion for this. I do not believe imaging is required. I discussed repair with the patient and recommended stitches to hold the skin flap down more tightly and give it the best chance of healing without being accidentally caught or ripped back open. She was hesitatnt about this stating that it still hurt, I explained I would use injected local numbing medication, but after further discussion she refused the stitches and wanted glue applied. Dermabond was used to close the wound after I explained risks of failure, infection, need for repeat procedure if that fails. See procedure note for details. No ointment was applied to the wound because I do not want to loosen the Dermabond prematurely. I gave the patient wound care instructions. Band-Aid was applied. AlumaFoam splint was provided to the patient to protect the end of the finger from accidentally being hit or reopening the wound. I do not believe patient requires prophylactic antibiotics or further intervention at this time. She continues to be neurovascularly intact and is appropriate for discharge. Patient was given instructions on continued symptomatic monitoring and management, wound care, follow-up, and return precautions for the ER. She indicated understanding and the patient was discharged in stable condition. Procedures Risk/Benefits of Procedure(s) Were Explained: Yes Laceration Laceration 1: Site: finger Side (If applicable): left (index finger) Size (cm): 1 Description: flap (1mm deep, not gaping, neurovascularly intact, hemostatic) Depth: simple, single layer Local Anesthetic: other anesthetic (Topical lidocaine/epinephrine/cocaine solution) Pre-repair: wound explored (Clean, no deep structure involvement appreciated) Skin layer closed with: Dermabond Critical Care Critical Care Time Critical Care Time: No
[2025-07-03 04:39] VITALS: BP 157/87; PULSE 82; RESP 18; TEMP 36.7
== END 2025-07-03 04:52 | disposition home or self-care (01) ==
PROVIDERS: Emergency Provider Emergency Medicine; PCP Nurse Practitioner Family
DX: S61.211A Laceration without foreign body of left index finger without damage to nail, initial encounter (principal); F17.210 Nicotine dependence, cigarettes, uncomplicated; W26.0XXA Contact with knife, initial encounter
CPT/HCPCS: 12001; 90471; 90715; 99283; 99284; J0169